=== PATIENT | male | born 1960 | race Caucasian/White ===

== ENCOUNTER 2018-07-22 11:51 | Inpatient (IN) | payer MEDICARE ==
[2018-07-22 12:17] VITALS: BP 158/93
[2018-07-22] MEDS ORDERED: Potassium Chloride 20 mEq ER Tab PO ONE (12:27)
[2018-07-22] MEDS ORDERED: Magnesium Hydroxide (MOM) 30 mL UDC PO PRN (12:43)
[2018-07-22] MEDS ORDERED: Maalox 30 mL Cup PO PRN (12:43)
--- NOTE | 2018-07-22 15:55 | History & Physical ---
ADMIT DATE: INTERNAL MEDICINE CONSULT REASON FOR CONSULT: Medical management. HISTORY OF PRESENT ILLNESS: This is a 58-year-old gentleman with no known medical history per review of chart, who was admitted earlier today for psych decompensation. The patient apparently was acting agitated and was apparently admitted to [facility] in [place] and now has been transferred for further psych management. Currently, the patient is asleep and is not answering any questions, but per nursing staff, there is no medical history and there are no home meds. PAST MEDICAL HISTORY: As noted above. PAST SURGICAL HISTORY: None reported. FAMILY HISTORY: Noncontributory to this admission. SOCIAL HISTORY: Unknown. ALLERGIES: NKDA. OUTPATIENT MEDICATIONS: None. REVIEW OF SYSTEMS: Unable to be done given the patient's condition. PHYSICAL EXAMINATION: VITAL SIGNS: BP 158/93. Pulse and temperature are not available. GENERAL: He appears to be well nourished, well developed, not in acute distress, currently asleep. CARDIAC: Regular rate and rhythm without any murmurs. LUNGS: Clear to auscultation bilaterally. ABDOMEN: Soft, supple, nontender, nondistended, normoactive bowel sounds. LOWER EXTREMITIES: No edema. LABORATORY DATA: There are no labs currently available. ASSESSMENT: 1. Acute psych decompensation. 2. Unknown psych disorder. 3. Possible hypertension per vital signs. PLAN: The patient has been admitted to [facility] for further management and care. I will place the patient on p.r.n. clonidine and we will monitor his BP. Basic labs will be ordered in the next day or so to further assess for any other medical issues. [facility]# [id number]
--- NOTE | 2018-07-23 09:30 | Internal Medicine Prog Note ---
Internal Medicine Subjective - Subjective Service Date: 07/23/18 (NO EVENTS) Patient seen and examined:: without staff Patient is:: asleep Per staff patient has:: no adverse event Internal Medicine Objective - Physical Exam Vitals and I&O: Vital Signs Temp 0 F 07/22/18 20:06 Pulse 93 07/22/18 20:00 Resp 20 07/22/18 20:00 BP 159/95 07/22/18 20:00 Pulse Ox 97 07/22/18 20:00 Intake & Output 07/22/18 07/23/18 07/23/18 18:59 06:59 18:59 Intake Total 240 Balance 240 Weight (lbs) 68.039 kg Intake: Oral 240 Other: # Voids 2 1 # Bowel Movements 0 0 Weight Source Bedscale Active Medications: Current Medications Acetaminophen (Tylenol) 650 mg PO Q4H PRN PRN Reason: Mild Pain/Headache/T above 101 Stop: 09/20/18 12:42 Last Admin: 07/23/18 08:52 Dose: 650 mg Al Hydrox/Mg Hydrox/Simethicone (Maalox) 30 ml PO Q6H PRN PRN Reason: Dyspepsia Stop: 09/20/18 12:42 Lorazepam (Ativan) 0.5 mg PO Q4HR PRN; Protocol PRN Reason: Agitation Stop: 09/20/18 15:29 Last Admin: 07/22/18 18:16 Dose: 0.5 mg Magnesium Hydroxide (Milk Of Magnesia) 30 ml PO HS PRN PRN Reason: Constipation Stop: 09/20/18 12:42 General: NAD HEENT: NC/AT Neck: Supple, No JVD Lungs: CTAB Cardiovascular: RRR, Normal S1, Normal S2, without murmur Abdomen: soft, positive bowel sound Extremities: clear Neurological: no change Internal Medicine Assmt/Plan - Assessment Assessment: ACUTE PSYCH DECOMPENSATION NON-SPECIFIC PSYCH D/O HTN? - Plan Plan: CONT WITH CURRENT PSYCH SUPPORTIVE CARE AND MGT CLONIDINE PRN AWAITING LABS
[2018-07-23] MEDS ORDERED: Haloperidol Lactate 5 mg/mL 1mL Vial IM ONE (14:17)
--- NOTE | 2018-07-24 00:47 | Psychiatric Evaluation ---
DATE OF SERVICE: 07/23/2018 JUSTIFICATION FOR HOSPITALIZATION: 5150 hold. The patient wanted to hurt other people, wanted to hurt himself, wanted the police to shoot him. HISTORY OF PRESENT ILLNESS: A 58-year-old male with history of schizophrenia. Hospitalizations in the past. Apparently, was using methamphetamines, heroin, smoking these substances, became more aggressive, agitated, angry brought in on a hold. The patient attests to anger, depression and restless, was really combative on the unit, needed emergency Haldol, order for psychotic agitation, was yelling at staff, yelling profanities, cursing at his mom over the phone, sexually inappropriate towards social insurance analyst. The patient notes he has been sleeping lately, poor appetite, likely secondary to meth use. PAST PSYCHIATRIC HISTORY: Admissions in the past alludes to schizophrenia. FAMILY HISTORY: Noncontributory. SOCIAL HISTORY: Living in [place], homeless, sometimes lives with mom, not working, gets SSDI. History of meth, heroin. MEDICAL HISTORY: Noted. MEDICATIONS: Noted. Notes he usually takes Zyprexa. MENTAL STATUS EXAMINATION: Stated age. Fair eye contact. Speech very quiet, difficult to hear him at times. Mood "angry." Affect withdrawn. Thought processes were tangential. The patient is here because of SI, no HI, but he has been aggressive, concerns for underlying psychosis. The patient guarded. Poor insight, poor judgment and poor impulse control. PROVISIONAL DIAGNOSES: Schizophrenia; mood, unspecified; opiate use disorder, unspecified; meth use disorder, unspecified. MEDICAL: Please see full H and P. ESTIMATED LENGTH OF STAY: 7-10 days. ASSESSMENT: The patient requiring hospitalization, aggressive, agitated, posturing, also suicidal. PLAN: Restart Zyprexa. TREATMENT PLAN: Includes group as well as milieu therapy. CONDITIONS FOR DISCHARGE: Improved mood, improved affect, cessation of any SI. [facility]# [id number]
--- NOTE | 2018-07-24 12:12 | Internal Medicine Prog Note ---
Internal Medicine Subjective - Subjective Service Date: 07/24/18 (no events) Patient is:: awake Per staff patient has:: no adverse event Internal Medicine Objective - Physical Exam Vitals and I&O: Vital Signs Temp 97.8 F 07/23/18 20:00 Pulse 84 07/23/18 20:00 Resp 19 07/24/18 07:25 BP 146/74 07/23/18 20:00 Pulse Ox 97 07/23/18 20:00 Intake & Output 07/23/18 07/24/18 07/24/18 18:59 06:59 18:59 Intake Total 120 Balance 120 Intake: Oral 120 Other: # Voids 3 Active Medications: Current Medications Acetaminophen (Tylenol) 650 mg PO Q4H PRN PRN Reason: Mild Pain/Headache/T above 101 Stop: 09/20/18 12:42 Last Admin: 07/23/18 08:52 Dose: 650 mg Al Hydrox/Mg Hydrox/Simethicone (Maalox) 30 ml PO Q6H PRN PRN Reason: Dyspepsia Stop: 09/20/18 12:42 Lorazepam (Ativan) 0.5 mg PO Q4HR PRN; Protocol PRN Reason: Agitation Stop: 09/20/18 15:29 Last Admin: 07/22/18 18:16 Dose: 0.5 mg Magnesium Hydroxide (Milk Of Magnesia) 30 ml PO HS PRN PRN Reason: Constipation Stop: 09/20/18 12:42 Olanzapine (Zyprexa) 10 mg PO HS MISBAH; Protocol Stop: 09/21/18 20:59 Last Admin: 07/23/18 21:30 Dose: Not Given General: NAD HEENT: NC/AT Neck: Supple, No JVD Lungs: CTAB Cardiovascular: RRR, Normal S1, Normal S2, without murmur Abdomen: soft, positive bowel sound Extremities: clear Neurological: no change Internal Medicine Assmt/Plan - Assessment Assessment: ACUTE PSYCH DECOMPENSATION NON-SPECIFIC PSYCH D/O HTN? - Plan Plan: CONT WITH CURRENT PSYCH SUPPORTIVE CARE AND MGT CLONIDINE PRN AWAITING LABS (refusing).
[2018-07-24] MEDS ORDERED: Haloperidol Lactate 5 mg/mL 1mL Vial IM ONE (16:30)
--- NOTE | 2018-07-24 21:21 | Progress Notes ---
DATE: 07/24/2018 SUBJECTIVE: A 58-year-old male, currently in the hospital, history of schizophrenia, meth use disorder, heroin use. The patient chronically is homeless, still acting strange, bizarre, sometimes disheveled, agitated yesterday, highly impulsive, unpredictable, no current plans for self-care, but he is amenable to going to a sober living. He wants to stay off of drugs. Fair sleep, fair appetite, he wants to be back on Zyprexa, some involvement from the mom. Mom is the payee. ASSESSMENT: The patient remains symptomatic, ongoing concerns about safety of self and others, and concerns about his ability to really function at a lower level of care. PLAN: We will continue to monitor, titrate medications, and initiate a 14-day hold. JOB# [id number]
[2018-07-25] MEDS ORDERED: Venlafaxine HCl ER 37.5 mg Tab PO ONE (13:22)
[2018-07-25] MEDS: Venlafaxine HCl ER 37.5 mg Tab PO SCH (17:36)
--- NOTE | 2018-07-25 18:30 | Progress Notes ---
DATE: SUBJECTIVE: The patient seen, chart reviewed, discussed with staff today, 07/25/2018. The patient is still bizarre, disrobing at times, impulsive, unpredictable, concerns mostly for the safety of self and also others. He has been aggressive on the unit. He is very unclear about where he is going to go. He states he wants to be homeless, but then states that he would consider rehab facility. The patient with a long history of mental illness, drug use, meth use, fair sleep, poor appetite, currently on Zyprexa. ASSESSMENT: The patient remains symptomatic, not safe for a lower level of care. PLAN: We will initiate dosing of Effexor. Continue the 14-day hold. JOB# [id number]
--- NOTE | 2018-07-25 23:58 | Internal Medicine Prog Note ---
Internal Medicine Subjective - Subjective Service Date: 07/25/18 (no events) Patient is:: awake Per staff patient has:: no adverse event Internal Medicine Objective - Physical Exam Vitals and I&O: Vital Signs Temp 97.5 F 07/25/18 14:50 Pulse 97 07/25/18 14:50 Resp 19 07/25/18 20:00 BP 132/77 07/25/18 14:50 Pulse Ox 97 07/25/18 14:50 Intake & Output 07/25/18 07/25/18 07/26/18 06:59 18:59 06:59 Intake Total 240 1200 Balance 240 1200 Intake: Oral 240 1200 Other: # Voids 2 4 # Bowel Movements 0 1 Active Medications: Current Medications Acetaminophen (Tylenol) 650 mg PO Q4H PRN PRN Reason: Mild Pain/Headache/T above 101 Stop: 09/20/18 12:42 Last Admin: 07/25/18 22:41 Dose: 650 mg Al Hydrox/Mg Hydrox/Simethicone (Maalox) 30 ml PO Q6H PRN PRN Reason: Dyspepsia Stop: 09/20/18 12:42 Lorazepam (Ativan) 0.5 mg PO Q4HR PRN; Protocol PRN Reason: Agitation Stop: 09/20/18 15:29 Last Admin: 07/25/18 20:55 Dose: 0.5 mg Magnesium Hydroxide (Milk Of Magnesia) 30 ml PO HS PRN PRN Reason: Constipation Stop: 09/20/18 12:42 Olanzapine (Zyprexa) 10 mg PO HS MISBAH; Protocol Stop: 09/21/18 20:59 Last Admin: 07/25/18 20:54 Dose: 10 mg Venlafaxine HCl (Effexor Xr) 37.5 mg PO BID MISBAH; Protocol Stop: 09/23/18 16:59 General: NAD HEENT: NC/AT Neck: Supple, No JVD Lungs: CTAB Cardiovascular: RRR, Normal S1, Normal S2, without murmur Abdomen: soft, positive bowel sound Extremities: clear Neurological: no change Internal Medicine Assmt/Plan - Assessment Assessment: ACUTE PSYCH DECOMPENSATION NON-SPECIFIC PSYCH D/O HTN? - Plan Plan: CONT WITH CURRENT PSYCH SUPPORTIVE CARE AND MGT CLONIDINE PRN AWAITING LABS (refusing).
[2018-07-26] MEDS: Venlafaxine HCl ER 37.5 mg Tab PO SCH ×2 (10:00→18:00)
--- NOTE | 2018-07-26 19:13 | Progress Notes ---
DATE: 07/26/2018 SUBJECTIVE: The patient seen, chart reviewed, discussed with staff today, 07/26/2018. The patient remains unruly, easily agitated, irritable, ongoing psychotic symptoms, seems to be mumbling to self, talking to self, poorly oriented. Mom called the office yesterday and wanted me to call her back, but the patient is not giving me verbal consent to speak with her and she is not the conservator, although apparently she introduces herself as a conservator to my office staff. Preoccupied, needing frequent redirection, unruly at times, outbursts. PLAN: We will continue to monitor, concerns for the safety mostly of others. The patient has required emergency order of medications while in the hospital. JOB# [id number]
[2018-07-27] MEDS: Venlafaxine HCl ER 37.5 mg Tab PO SCH ×2 (08:57→17:21)
--- NOTE | 2018-07-27 11:42 | Progress Notes ---
DATE: 07/27/2018 SUBJECTIVE: The patient remains highly impulsive, unpredictable, still unruly at times, mumbling to self, psychotic appearing, seems to be tolerant of medications thus far. No medication side effects noted. No Parkinsonism for example tremors. The patient is currently taking Zyprexa 10 mg. We will continue to monitor. We will be increasing his dosing to target ongoing agitation and underlying psychosis. [facility]# [id number]
[2018-07-27 17:49] LABS: % BASOPHILS 0.6 % (0.0-2.0); % EOSINOPHILS 3.9 % (0.0-5.0); % LYMPHOCYTES 43.7 % (20.0-50.0); % MONOCYTES 6.9 % (2.0-10.0); % NEUTROPHILS 44.9 % (40.0-80.0); EOSINOPHILE ABSOLUTE 0.3 Th/cmm (0.1-0.4); HEMOGLOBIN 13.2 gm/dL (12-16); LYMPHOCYTE ABSOLUTE 2.9 Th/cmm (1.5-3.0); MEAN CELL VOLUME 90.1 fl (80-99); MEAN CORPUSCULAR HEMOGLOBIN 29.8 pg (26.0-30.0); MONOCYTE ABSOLUTE 0.5 Th/cmm (0.3-1.0); NEUTROPHILE ABSOLUTE 2.9 Th/cmm (1.8-8.0); PLATELET COUNT 220 Th/cmm (150-400); RED BLOOD COUNT 4.44 Mil/cmm (4.30-5.70); RED CELL DISTRIBUTION WIDTH 13.1 % (11.5-20.0); WHITE BLOOD COUNT 6.6 Th/cmm (4.8-10.8)
[2018-07-27 18:07] LABS: ALB/GLOB RATIO 1.5 (1.0-1.8); ALBUMIN 3.9 gm/dL (4.2-5.5); ALKALINE PHOSPHATASE 89 U/L (34-104); ANION GAP 13.7 (7.0-16.0); BILIRUBIN,TOTAL 0.3 mg/dL (0.3-1.0); BUN - UREA NITROGEN 19 mg/dL (7-25); CALCIUM SERUM 9.6 mg/dL (8.6-10.3); CARBON DIOXIDE 26.3 mEq/L (21.0-31.0); CHLORIDE 103 mEq/L (98-107); CREATININE - SERUM 0.9 mg/dL (0.7-1.3); GFR AFRICAN-AMERICAN > 60.0 ml/min (>90); GFR NON AFRICAN-AMERICAN > 60.0 ml/min; GLUCOSE 162 mg/dL (70-105); SGOT 20 U/L (13-39); SGPT/ALT 15 U/L (7-52); SODIUM SERUM 139 mEq/L (136-145); TOTAL PROTEIN,SERUM 6.5 gm/dL (6.0-8.3)
[2018-07-27 19:39] LABS: URINE SOURCE CLEAN C
[2018-07-27 19:50] LABS: URINE BILIRUBIN NEGATIVE (NEGATIVE); URINE BLOOD TRACE (NEGATIVE); URINE GLUCOSE (UA) NEGATIVE (NEGATIVE); URINE KETONE NEGATIVE (NEGATIVE); URINE LEUKOCYTE ESTERASE NEGATIVE (NEGATIVE); URINE MICROSCOPIC INDICATED? YES; URINE NITRATE NEGATIVE (NEGATIVE); URINE PH 5.5 (4.6 - 8.0); URINE PROTEIN NEGATIVE (NEGATIVE); URINE UROBILINOGEN 0.2 E.U./dL (0.2 - 1.0)
[2018-07-27 19:51] LABS: URINE CLARITY CLEAR (CLEAR); URINE COLOR YELLOW
[2018-07-27 20:02] LABS: URINE BACTERIA NONE SEEN /hpf (NONE SEEN); URINE EPITHELIAL CELLS NONE SEEN /lpf (FEW); URINE WBC 0-2 /hpf (0-5)
--- NOTE | 2018-07-27 22:21 | Internal Medicine Prog Note ---
Internal Medicine Subjective - Subjective Service Date: 07/27/18 (no distress) Patient is:: awake Per staff patient has:: no adverse event Internal Medicine Objective - Results Result Diagrams: 07/27/18 17:40 07/27/18 17:40 Recent Labs: Laboratory Last Values WBC 6.6 Th/cmm (4.8-10.8) 07/27/18 17:40 RBC 4.44 Mil/cmm (4.30-5.70) 07/27/18 17:40 Hgb 13.2 gm/dL (12-16) 07/27/18 17:40 Hct 40.0 % (41.0-60) L 07/27/18 17:40 MCV 90.1 fl (80-99) 07/27/18 17:40 MCH 29.8 pg (26.0-30.0) 07/27/18 17:40 MCHC Differential 33.0 pg (28.0-36.0) 07/27/18 17:40 RDW 13.1 % (11.5-20.0) 07/27/18 17:40 Plt Count 220 Th/cmm (150-400) 07/27/18 17:40 MPV 7.9 fl 07/27/18 17:40 Neutrophils % 44.9 % (40.0-80.0) 07/27/18 17:40 Lymphocytes % 43.7 % (20.0-50.0) 07/27/18 17:40 Monocytes % 6.9 % (2.0-10.0) 07/27/18 17:40 Eosinophils % 3.9 % (0.0-5.0) 07/27/18 17:40 Basophils % 0.6 % (0.0-2.0) 07/27/18 17:40 Sodium 139 mEq/L (136-145) 07/27/18 17:40 Potassium 4.0 mEq/L (3.5-5.1) 07/27/18 17:40 Chloride 103 mEq/L (98-107) 07/27/18 17:40 Carbon Dioxide 26.3 mEq/L (21.0-31.0) 07/27/18 17:40 Anion Gap 13.7 (7.0-16.0) 07/27/18 17:40 BUN 19 mg/dL (7-25) 07/27/18 17:40 Creatinine 0.9 mg/dL (0.7-1.3) 07/27/18 17:40 Est GFR ( Amer) > 60.0 ml/min (>90) 07/27/18 17:40 Est GFR (Non-Af Amer) > 60.0 ml/min 07/27/18 17:40 BUN/Creatinine Ratio 21.1 07/27/18 17:40 Glucose 162 mg/dL (70-105) H 07/27/18 17:40 Calcium 9.6 mg/dL (8.6-10.3) 07/27/18 17:40 Total Bilirubin 0.3 mg/dL (0.3-1.0) 07/27/18 17:40 AST 20 U/L (13-39) 07/27/18 17:40 ALT 15 U/L (7-52) 07/27/18 17:40 Alkaline Phosphatase 89 U/L (34-104) 07/27/18 17:40 Total Protein 6.5 gm/dL (6.0-8.3) 07/27/18 17:40 Albumin 3.9 gm/dL (4.2-5.5) L 07/27/18 17:40 Globulin 2.6 gm/dL 07/27/18 17:40 Albumin/Globulin Ratio 1.5 (1.0-1.8) 07/27/18 17:40 TSH 1.09 uIU/ml (0.34-5.60) 07/27/18 17:40 Urine Source CLEAN C 07/27/18 19:15 Urine Color YELLOW 07/27/18 19:15 Urine Clarity CLEAR (CLEAR) 07/27/18 19:15 Urine pH 5.5 (4.6 - 8.0) 07/27/18 19:15 Ur Specific [place] 1.025 (1.005-1.030) 07/27/18 19:15 Urine Protein NEGATIVE mg/dL (NEGATIVE) 07/27/18 19:15 Urine Glucose (UA) NEGATIVE mg/dL (NEGATIVE) 07/27/18 19:15 Urine Ketones NEGATIVE mg/dL (NEGATIVE) 07/27/18 19:15 Urine Blood TRACE (NEGATIVE) 07/27/18 19:15 Urine Nitrate NEGATIVE (NEGATIVE) 07/27/18 19:15 Urine Bilirubin NEGATIVE (NEGATIVE) 07/27/18 19:15 Urine Urobilinogen 0.2 E.U./dL (0.2 - 1.0) 07/27/18 19:15 Ur Leukocyte Esterase NEGATIVE (NEGATIVE) 07/27/18 19:15 Urine RBC 2-5 /hpf (0-5) H 07/27/18 19:15 Urine WBC 0-2 /hpf (0-5) 07/27/18 19:15 Ur Epithelial Cells NONE SEEN /lpf (FEW) 07/27/18 19:15 Urine Bacteria NONE SEEN /hpf (NONE SEEN) 07/27/18 19:15 - Physical Exam Vitals and I&O: Vital Signs Temp 98.0 F 07/27/18 20:00 Pulse 83 07/27/18 20:00 Resp 20 07/27/18 20:00 BP 138/92 07/27/18 20:00 Pulse Ox 100 07/27/18 20:00 Intake & Output 07/27/18 07/27/18 07/28/18 06:59 18:59 06:59 Intake Total 120 1400 240 Balance 120 1400 240 Intake: Oral 120 1400 240 Other: # Voids 3 4 2 # Bowel Movements 1 0 Active Medications: Current Medications Acetaminophen (Tylenol) 650 mg PO Q4H PRN PRN Reason: Mild Pain/Headache/T above 101 Stop: 09/20/18 12:42 Last Admin: 07/27/18 17:22 Dose: 650 mg Al Hydrox/Mg Hydrox/Simethicone (Maalox) 30 ml PO Q6H PRN PRN Reason: Dyspepsia Stop: 09/20/18 12:42 Lorazepam (Ativan) 0.5 mg PO Q4HR PRN; Protocol PRN Reason: Agitation Stop: 09/20/18 15:29 Last Admin: 07/27/18 17:21 Dose: 0.5 mg Magnesium Hydroxide (Milk Of Magnesia) 30 ml PO HS PRN PRN Reason: Constipation Stop: 09/20/18 12:42 Olanzapine (Zyprexa) 15 mg PO HS MISBAH; Protocol Stop: 09/25/18 20:59 Last Admin: 07/27/18 20:21 Dose: 15 mg Venlafaxine HCl (Effexor Xr) 37.5 mg PO BID MISBAH; Protocol Stop: 09/23/18 16:59 Last Admin: 07/27/18 17:21 Dose: 37.5 mg General: NAD HEENT: NC/AT Neck: Supple, No JVD Lungs: CTAB Cardiovascular: RRR, Normal S1, Normal S2, without murmur Abdomen: soft, positive bowel sound Extremities: clear Neurological: no change Internal Medicine Assmt/Plan - Assessment Assessment: ACUTE PSYCH DECOMPENSATION NON-SPECIFIC PSYCH D/O HTN-monitor. Clonidine prn. - Plan Plan: CONT WITH CURRENT PSYCH SUPPORTIVE CARE AND MGT CLONIDINE PRN
[2018-07-28 05:04] LABS: CHOLESTEROL 125 mg/dL (<200); HDL -HIGH DENSITY LIPOPROTEIN 51 mg/dL (23-92); TRIGLYCERIDES 100 mg/dL (<150)
[2018-07-28] MEDS: Venlafaxine HCl ER 37.5 mg Tab PO SCH ×2 (08:58→16:17)
--- NOTE | 2018-07-28 09:09 | Internal Medicine Prog Note ---
Internal Medicine Subjective - Subjective Service Date: 07/28/18 (no mjor changes noted) Patient seen and examined:: without staff Patient is:: awake Per staff patient has:: no adverse event Internal Medicine Objective - Results Result Diagrams: 07/27/18 17:40 07/27/18 17:40 Recent Labs: Laboratory Last Values WBC 6.6 Th/cmm (4.8-10.8) 07/27/18 17:40 RBC 4.44 Mil/cmm (4.30-5.70) 07/27/18 17:40 Hgb 13.2 gm/dL (12-16) 07/27/18 17:40 Hct 40.0 % (41.0-60) L 07/27/18 17:40 MCV 90.1 fl (80-99) 07/27/18 17:40 MCH 29.8 pg (26.0-30.0) 07/27/18 17:40 MCHC Differential 33.0 pg (28.0-36.0) 07/27/18 17:40 RDW 13.1 % (11.5-20.0) 07/27/18 17:40 Plt Count 220 Th/cmm (150-400) 07/27/18 17:40 MPV 7.9 fl 07/27/18 17:40 Neutrophils % 44.9 % (40.0-80.0) 07/27/18 17:40 Lymphocytes % 43.7 % (20.0-50.0) 07/27/18 17:40 Monocytes % 6.9 % (2.0-10.0) 07/27/18 17:40 Eosinophils % 3.9 % (0.0-5.0) 07/27/18 17:40 Basophils % 0.6 % (0.0-2.0) 07/27/18 17:40 Sodium 139 mEq/L (136-145) 07/27/18 17:40 Potassium 4.0 mEq/L (3.5-5.1) 07/27/18 17:40 Chloride 103 mEq/L (98-107) 07/27/18 17:40 Carbon Dioxide 26.3 mEq/L (21.0-31.0) 07/27/18 17:40 Anion Gap 13.7 (7.0-16.0) 07/27/18 17:40 BUN 19 mg/dL (7-25) 07/27/18 17:40 Creatinine 0.9 mg/dL (0.7-1.3) 07/27/18 17:40 Est GFR ( Amer) > 60.0 ml/min (>90) 07/27/18 17:40 Est GFR (Non-Af Amer) > 60.0 ml/min 07/27/18 17:40 BUN/Creatinine Ratio 21.1 07/27/18 17:40 Glucose 162 mg/dL (70-105) H 07/27/18 17:40 Calcium 9.6 mg/dL (8.6-10.3) 07/27/18 17:40 Total Bilirubin 0.3 mg/dL (0.3-1.0) 07/27/18 17:40 AST 20 U/L (13-39) 07/27/18 17:40 ALT 15 U/L (7-52) 07/27/18 17:40 Alkaline Phosphatase 89 U/L (34-104) 07/27/18 17:40 Total Protein 6.5 gm/dL (6.0-8.3) 07/27/18 17:40 Albumin 3.9 gm/dL (4.2-5.5) L 07/27/18 17:40 Globulin 2.6 gm/dL 07/27/18 17:40 Albumin/Globulin Ratio 1.5 (1.0-1.8) 07/27/18 17:40 Triglycerides 100 mg/dL (<150) 07/27/18 17:40 Cholesterol 125 mg/dL (<200) 07/27/18 17:40 LDL Cholesterol Direct 61 mg/dL (75-193) L 07/27/18 17:40 HDL Cholesterol 51 mg/dL (23-92) 07/27/18 17:40 TSH 1.09 uIU/ml (0.34-5.60) 07/27/18 17:40 Urine Source CLEAN C 07/27/18 19:15 Urine Color YELLOW 07/27/18 19:15 Urine Clarity CLEAR (CLEAR) 07/27/18 19:15 Urine pH 5.5 (4.6 - 8.0) 07/27/18 19:15 Ur Specific [place] 1.025 (1.005-1.030) 07/27/18 19:15 Urine Protein NEGATIVE mg/dL (NEGATIVE) 07/27/18 19:15 Urine Glucose (UA) NEGATIVE mg/dL (NEGATIVE) 07/27/18 19:15 Urine Ketones NEGATIVE mg/dL (NEGATIVE) 07/27/18 19:15 Urine Blood TRACE (NEGATIVE) 07/27/18 19:15 Urine Nitrate NEGATIVE (NEGATIVE) 07/27/18 19:15 Urine Bilirubin NEGATIVE (NEGATIVE) 07/27/18 19:15 Urine Urobilinogen 0.2 E.U./dL (0.2 - 1.0) 07/27/18 19:15 Ur Leukocyte Esterase NEGATIVE (NEGATIVE) 07/27/18 19:15 Urine RBC 2-5 /hpf (0-5) H 07/27/18 19:15 Urine WBC 0-2 /hpf (0-5) 07/27/18 19:15 Ur Epithelial Cells NONE SEEN /lpf (FEW) 07/27/18 19:15 Urine Bacteria NONE SEEN /hpf (NONE SEEN) 07/27/18 19:15 - Physical Exam Vitals and I&O: Vital Signs Temp 98.0 F 07/27/18 20:00 Pulse 83 07/27/18 20:00 Resp 20 07/27/18 20:00 BP 138/92 07/27/18 20:00 Pulse Ox 100 07/27/18 20:00 Intake & Output 07/27/18 07/28/18 07/28/18 18:59 06:59 18:59 Intake Total 1400 360 Balance 1400 360 Intake: Oral 1400 360 Other: # Voids 4 1 # Bowel Movements 1 0 Active Medications: Current Medications Acetaminophen (Tylenol) 650 mg PO Q4H PRN PRN Reason: Mild Pain/Headache/T above 101 Stop: 09/20/18 12:42 Last Admin: 07/28/18 01:23 Dose: 650 mg Al Hydrox/Mg Hydrox/Simethicone (Maalox) 30 ml PO Q6H PRN PRN Reason: Dyspepsia Stop: 09/20/18 12:42 Lorazepam (Ativan) 0.5 mg PO Q4HR PRN; Protocol PRN Reason: Agitation Stop: 09/20/18 15:29 Last Admin: 07/28/18 08:58 Dose: 0.5 mg Magnesium Hydroxide (Milk Of Magnesia) 30 ml PO HS PRN PRN Reason: Constipation Stop: 09/20/18 12:42 Olanzapine (Zyprexa) 15 mg PO HS MISBAH; Protocol Stop: 09/25/18 20:59 Last Admin: 07/27/18 20:21 Dose: 15 mg Venlafaxine HCl (Effexor Xr) 37.5 mg PO BID MISBAH; Protocol Stop: 09/23/18 16:59 Last Admin: 07/28/18 08:58 Dose: 37.5 mg General: NAD HEENT: NC/AT Neck: Supple, No JVD Lungs: CTAB Cardiovascular: RRR, Normal S1, Normal S2, without murmur Abdomen: soft, positive bowel sound Extremities: clear Neurological: no change Internal Medicine Assmt/Plan - Assessment Assessment: ACUTE PSYCH DECOMPENSATION NON-SPECIFIC PSYCH D/O HTN-monitor. Clonidine prn. - Plan Plan: CONT WITH CURRENT PSYCH SUPPORTIVE CARE AND MGT CLONIDINE PRN
--- NOTE | 2018-07-28 23:24 | Progress Notes ---
DATE: 07/28/2018 SUBJECTIVE: The patient irritable, upset, does not want to talk to me today. Noted by staff to be unruly, highly impulsive, unpredictable. Mom is trying to get in touch with me, but the patient did not give me consent to speak with her. Therefore, I will be abiding by the HIPAA rules and I will not be communicating with the patient's mother per the explicit instructions of the patient. Fair sleep, fair appetite, ongoing safety concerns, concerns about most of the safety of others around him, given how aggressive he can be. We will continue to monitor. Continue Effexor, Zyprexa. We are trying to also help the patient with placement. DICTATION ENDS HERE JOB# [id number]
[2018-07-29] MEDS: Venlafaxine HCl ER 37.5 mg Tab PO SCH ×2 (08:32→16:10)
[2018-07-29] MEDS ORDERED: Haloperidol Lactate 5 mg/mL 1mL Vial IM STA (15:37)
--- NOTE | 2018-07-29 23:32 | Progress Notes ---
DATE: 07/29/2018 SUBJECTIVE: The patient combative, exposing himself, cursing, may need emergency medications, escalating, pacing back and forth, flailing his arms in the air, and responding heavily to internal stimuli, still acute. ASSESSMENT: The patient remains symptomatic, ongoing concerns about ongoing behavioral disturbances. Concerns for mostly the safety of others. Also, about his ability to really reason and function at a lower level of care. PLAN: I will be increasing his dosing of Zyprexa today. [facility]# [id number]
--- NOTE | 2018-07-30 08:53 | Internal Medicine Prog Note ---
Internal Medicine Subjective - Subjective Service Date: 07/30/18 (NO EVENTS.) Patient is:: awake Per staff patient has:: no adverse event Internal Medicine Objective - Results Result Diagrams: 07/27/18 17:40 07/27/18 17:40 Recent Labs: Laboratory Last Values WBC 6.6 Th/cmm (4.8-10.8) 07/27/18 17:40 RBC 4.44 Mil/cmm (4.30-5.70) 07/27/18 17:40 Hgb 13.2 gm/dL (12-16) 07/27/18 17:40 Hct 40.0 % (41.0-60) L 07/27/18 17:40 MCV 90.1 fl (80-99) 07/27/18 17:40 MCH 29.8 pg (26.0-30.0) 07/27/18 17:40 MCHC Differential 33.0 pg (28.0-36.0) 07/27/18 17:40 RDW 13.1 % (11.5-20.0) 07/27/18 17:40 Plt Count 220 Th/cmm (150-400) 07/27/18 17:40 MPV 7.9 fl 07/27/18 17:40 Neutrophils % 44.9 % (40.0-80.0) 07/27/18 17:40 Lymphocytes % 43.7 % (20.0-50.0) 07/27/18 17:40 Monocytes % 6.9 % (2.0-10.0) 07/27/18 17:40 Eosinophils % 3.9 % (0.0-5.0) 07/27/18 17:40 Basophils % 0.6 % (0.0-2.0) 07/27/18 17:40 Sodium 139 mEq/L (136-145) 07/27/18 17:40 Potassium 4.0 mEq/L (3.5-5.1) 07/27/18 17:40 Chloride 103 mEq/L (98-107) 07/27/18 17:40 Carbon Dioxide 26.3 mEq/L (21.0-31.0) 07/27/18 17:40 Anion Gap 13.7 (7.0-16.0) 07/27/18 17:40 BUN 19 mg/dL (7-25) 07/27/18 17:40 Creatinine 0.9 mg/dL (0.7-1.3) 07/27/18 17:40 Est GFR ( Amer) > 60.0 ml/min (>90) 07/27/18 17:40 Est GFR (Non-Af Amer) > 60.0 ml/min 07/27/18 17:40 BUN/Creatinine Ratio 21.1 07/27/18 17:40 Glucose 162 mg/dL (70-105) H 07/27/18 17:40 Calcium 9.6 mg/dL (8.6-10.3) 07/27/18 17:40 Total Bilirubin 0.3 mg/dL (0.3-1.0) 07/27/18 17:40 AST 20 U/L (13-39) 07/27/18 17:40 ALT 15 U/L (7-52) 07/27/18 17:40 Alkaline Phosphatase 89 U/L (34-104) 07/27/18 17:40 Total Protein 6.5 gm/dL (6.0-8.3) 07/27/18 17:40 Albumin 3.9 gm/dL (4.2-5.5) L 07/27/18 17:40 Globulin 2.6 gm/dL 07/27/18 17:40 Albumin/Globulin Ratio 1.5 (1.0-1.8) 07/27/18 17:40 Triglycerides 100 mg/dL (<150) 07/27/18 17:40 Cholesterol 125 mg/dL (<200) 07/27/18 17:40 LDL Cholesterol Direct 61 mg/dL (75-193) L 07/27/18 17:40 HDL Cholesterol 51 mg/dL (23-92) 07/27/18 17:40 TSH 1.09 uIU/ml (0.34-5.60) 07/27/18 17:40 Urine Source CLEAN C 07/27/18 19:15 Urine Color YELLOW 07/27/18 19:15 Urine Clarity CLEAR (CLEAR) 07/27/18 19:15 Urine pH 5.5 (4.6 - 8.0) 07/27/18 19:15 Ur Specific [place] 1.025 (1.005-1.030) 07/27/18 19:15 Urine Protein NEGATIVE mg/dL (NEGATIVE) 07/27/18 19:15 Urine Glucose (UA) NEGATIVE mg/dL (NEGATIVE) 07/27/18 19:15 Urine Ketones NEGATIVE mg/dL (NEGATIVE) 07/27/18 19:15 Urine Blood TRACE (NEGATIVE) 07/27/18 19:15 Urine Nitrate NEGATIVE (NEGATIVE) 07/27/18 19:15 Urine Bilirubin NEGATIVE (NEGATIVE) 07/27/18 19:15 Urine Urobilinogen 0.2 E.U./dL (0.2 - 1.0) 07/27/18 19:15 Ur Leukocyte Esterase NEGATIVE (NEGATIVE) 07/27/18 19:15 Urine RBC 2-5 /hpf (0-5) H 07/27/18 19:15 Urine WBC 0-2 /hpf (0-5) 07/27/18 19:15 Ur Epithelial Cells NONE SEEN /lpf (FEW) 07/27/18 19:15 Urine Bacteria NONE SEEN /hpf (NONE SEEN) 07/27/18 19:15 - Physical Exam Vitals and I&O: Vital Signs Temp 98.0 F 07/30/18 06:06 Pulse 82 07/30/18 06:06 Resp 19 07/30/18 06:06 BP 156/92 07/30/18 06:06 Pulse Ox 99 07/30/18 06:06 Intake & Output 07/29/18 07/30/18 07/30/18 18:59 06:59 18:59 Intake Total 420 Balance 420 Intake: Oral 420 Other: # Voids 2 # Bowel Movements 0 Active Medications: Current Medications Acetaminophen (Tylenol) 650 mg PO Q4H PRN PRN Reason: Mild Pain/Headache/T above 101 Stop: 09/20/18 12:42 Last Admin: 07/29/18 14:14 Dose: 650 mg Al Hydrox/Mg Hydrox/Simethicone (Maalox) 30 ml PO Q6H PRN PRN Reason: Dyspepsia Stop: 09/20/18 12:42 Lorazepam (Ativan) 0.5 mg PO Q4HR PRN; Protocol PRN Reason: Agitation Stop: 09/20/18 15:29 Last Admin: 07/30/18 03:44 Dose: 0.5 mg Magnesium Hydroxide (Milk Of Magnesia) 30 ml PO HS PRN PRN Reason: Constipation Stop: 09/20/18 12:42 Olanzapine (Zyprexa) 10 mg PO DAILY [facility]; Protocol Stop: 09/28/18 08:59 Olanzapine (Zyprexa) 15 mg PO HS [facility]; Protocol Stop: 09/25/18 20:59 Venlafaxine HCl (Effexor Xr) 37.5 mg PO BID [facility]; Protocol Stop: 09/23/18 16:59 Last Admin: 07/29/18 16:10 Dose: 37.5 mg General: NAD HEENT: NC/AT Neck: Supple, No JVD Lungs: CTAB Cardiovascular: RRR, Normal S1, Normal S2, without murmur Abdomen: soft, positive bowel sound Extremities: clear Neurological: no change Internal Medicine Assmt/Plan - Assessment Assessment: ACUTE PSYCH DECOMPENSATION NON-SPECIFIC PSYCH D/O HTN-monitor. Start amlodipine 5mg qday, cont with Clonidine prn. - Plan Plan: CONT WITH CURRENT PSYCH SUPPORTIVE CARE AND MGT CLONIDINE PRN Nutritional Asmnt/Malnutr-PDOC - Dietary Evaluation Malnutrition Findings (Please click <Entered> for more info): Nutritional Asmnt/Malnutrition Start: 07/29/18 18: 18 Text: Status: Active Freq: Protocol: Document 07/29/18 18:18 [email or web address] (Rec: 07/29/18 18:50 [email or web address]) Nutritional Asmnt/Malnutrition Patient General Information Nutritional Screening Low Risk Diagnosis acute psych decompensation Pertinent Medical Hx/Surgical Hx no known medical hx noted per MD H&P. Subjective Information Pt is 58 yr old male with no known medical hx admitted for pscyh decompensation. Pt on regular diet, PO intakes 100% x last 6 recorded meals. Current Diet Order/ Nutrition Support Regular Diet Pertinent Medications milk of magnesia, maalox Pertinent Labs Glucose 162 noted/no hx DM; will monitor. Nutritional Hx/Data Height 1.73 m Height (Calculated Centimeters) 172.7 Current Weight (lbs) 68.039 kg Weight (Calculated Kilograms) 68.0 Weight (Calculated Grams) 49912.9 [place] Body Weight 70 kg Body Mass Index (BMI) 22.8 Weight Status Approriate GI Symptoms GI Symptoms None Last BM 615 Difficult in: None Food Allergies No Skin Integrity/Comment: intact- no pressure injury/non -healing wounds noted. Current %PO Good (75-100%) Estimated Nutritional Goals BEE in Kcals: Using Current wt Calories/Kcals/Kg 25-30 Kcals Calculated 0209-9274 Protein: Using Current wt Protein g/k.8-1 Protein Calculated 54-68 Fluid: ml 6257-7568 Nutritional Problem 1. Problem Problem No nutrition diagnosis at this time. Intervention/Recommendation Comments Continue Regular Diet Rx- adequate to meet estimated nutritional needs. Expected Outcomes/Goals Expected Outcomes/Goals Maintain PO intakes 90-100% of all meals. Electronically Signed By: Annalisa Galaviz, MPH, RDN Clinical Dietitian 07/29/18 7:10 PM
[2018-07-30] MEDS: Venlafaxine HCl ER 37.5 mg Tab PO SCH ×2 (09:42→17:44)
[2018-07-31] MEDS: Venlafaxine HCl ER 37.5 mg Tab PO SCH ×2 (08:37→17:00)
--- NOTE | 2018-07-31 10:31 | Progress Notes ---
DATE: 07/30/2018 SUBJECTIVE: The patient continues to deny any access to contact the patient's mom, due to ____; therefore I am not able to contact her. I asked him continuously and he continually says that "I do not have permission to call her." The patient is still rambling, aggressive at times, still noted to be nonsensical, argumentative, easily agitated, ongoing concerns about his ability to really function at a lower level of care. I also asked the patient on Saturday, whether I can call his doctor, ____, and he also said no. The patient is talking to self, nonsensical. PLAN: We will continue to monitor ongoing concerns about his ability to really stay safe, functional lower level of care, at times requiring a lot of interventions, staff intervention. We will continue to monitor, titrate and adjust medications. I will be increasing his dosing of Zyprexa in the morning. [facility]# [id number]
--- NOTE | 2018-07-31 12:31 | Internal Medicine Prog Note ---
Internal Medicine Subjective - Subjective Service Date: 07/31/18 (NO ACUTE EVENTS) Patient is:: awake Per staff patient has:: no adverse event Internal Medicine Objective - Results Result Diagrams: 07/27/18 17:40 07/27/18 17:40 Recent Labs: Laboratory Last Values WBC 6.6 Th/cmm (4.8-10.8) 07/27/18 17:40 RBC 4.44 Mil/cmm (4.30-5.70) 07/27/18 17:40 Hgb 13.2 gm/dL (12-16) 07/27/18 17:40 Hct 40.0 % (41.0-60) L 07/27/18 17:40 MCV 90.1 fl (80-99) 07/27/18 17:40 MCH 29.8 pg (26.0-30.0) 07/27/18 17:40 MCHC Differential 33.0 pg (28.0-36.0) 07/27/18 17:40 RDW 13.1 % (11.5-20.0) 07/27/18 17:40 Plt Count 220 Th/cmm (150-400) 07/27/18 17:40 MPV 7.9 fl 07/27/18 17:40 Neutrophils % 44.9 % (40.0-80.0) 07/27/18 17:40 Lymphocytes % 43.7 % (20.0-50.0) 07/27/18 17:40 Monocytes % 6.9 % (2.0-10.0) 07/27/18 17:40 Eosinophils % 3.9 % (0.0-5.0) 07/27/18 17:40 Basophils % 0.6 % (0.0-2.0) 07/27/18 17:40 Sodium 139 mEq/L (136-145) 07/27/18 17:40 Potassium 4.0 mEq/L (3.5-5.1) 07/27/18 17:40 Chloride 103 mEq/L (98-107) 07/27/18 17:40 Carbon Dioxide 26.3 mEq/L (21.0-31.0) 07/27/18 17:40 Anion Gap 13.7 (7.0-16.0) 07/27/18 17:40 BUN 19 mg/dL (7-25) 07/27/18 17:40 Creatinine 0.9 mg/dL (0.7-1.3) 07/27/18 17:40 Est GFR ( Amer) > 60.0 ml/min (>90) 07/27/18 17:40 Est GFR (Non-Af Amer) > 60.0 ml/min 07/27/18 17:40 BUN/Creatinine Ratio 21.1 07/27/18 17:40 Glucose 162 mg/dL (70-105) H 07/27/18 17:40 Calcium 9.6 mg/dL (8.6-10.3) 07/27/18 17:40 Total Bilirubin 0.3 mg/dL (0.3-1.0) 07/27/18 17:40 AST 20 U/L (13-39) 07/27/18 17:40 ALT 15 U/L (7-52) 07/27/18 17:40 Alkaline Phosphatase 89 U/L (34-104) 07/27/18 17:40 Total Protein 6.5 gm/dL (6.0-8.3) 07/27/18 17:40 Albumin 3.9 gm/dL (4.2-5.5) L 07/27/18 17:40 Globulin 2.6 gm/dL 07/27/18 17:40 Albumin/Globulin Ratio 1.5 (1.0-1.8) 07/27/18 17:40 Triglycerides 100 mg/dL (<150) 07/27/18 17:40 Cholesterol 125 mg/dL (<200) 07/27/18 17:40 LDL Cholesterol Direct 61 mg/dL (75-193) L 07/27/18 17:40 HDL Cholesterol 51 mg/dL (23-92) 07/27/18 17:40 TSH 1.09 uIU/ml (0.34-5.60) 07/27/18 17:40 Urine Source CLEAN C 07/27/18 19:15 Urine Color YELLOW 07/27/18 19:15 Urine Clarity CLEAR (CLEAR) 07/27/18 19:15 Urine pH 5.5 (4.6 - 8.0) 07/27/18 19:15 Ur Specific [place] 1.025 (1.005-1.030) 07/27/18 19:15 Urine Protein NEGATIVE mg/dL (NEGATIVE) 07/27/18 19:15 Urine Glucose (UA) NEGATIVE mg/dL (NEGATIVE) 07/27/18 19:15 Urine Ketones NEGATIVE mg/dL (NEGATIVE) 07/27/18 19:15 Urine Blood TRACE (NEGATIVE) 07/27/18 19:15 Urine Nitrate NEGATIVE (NEGATIVE) 07/27/18 19:15 Urine Bilirubin NEGATIVE (NEGATIVE) 07/27/18 19:15 Urine Urobilinogen 0.2 E.U./dL (0.2 - 1.0) 07/27/18 19:15 Ur Leukocyte Esterase NEGATIVE (NEGATIVE) 07/27/18 19:15 Urine RBC 2-5 /hpf (0-5) H 07/27/18 19:15 Urine WBC 0-2 /hpf (0-5) 07/27/18 19:15 Ur Epithelial Cells NONE SEEN /lpf (FEW) 07/27/18 19:15 Urine Bacteria NONE SEEN /hpf (NONE SEEN) 07/27/18 19:15 - Physical Exam Vitals and I&O: Vital Signs Temp 97.3 F 07/31/18 06:30 Pulse 95 07/31/18 08:36 Resp 20 07/31/18 06:30 BP 135/94 07/31/18 08:36 Pulse Ox 99 07/31/18 06:30 Intake & Output 07/30/18 07/31/18 07/31/18 18:59 06:59 18:59 Intake Total 1200 120 Balance 1200 120 Intake: Oral 1200 120 Other: # Voids 3 # Bowel Movements 1 Active Medications: Current Medications Acetaminophen (Tylenol) 650 mg PO Q4H PRN PRN Reason: Mild Pain/Headache/T above 101 Stop: 09/20/18 12:42 Last Admin: 07/30/18 22:50 Dose: 650 mg Al Hydrox/Mg Hydrox/Simethicone (Maalox) 30 ml PO Q6H PRN PRN Reason: Dyspepsia Stop: 09/20/18 12:42 Amlodipine Besylate (Norvasc) 5 mg PO DAILY [facility] Stop: 09/28/18 08:59 Last Admin: 07/31/18 08:36 Dose: 5 mg Divalproex Sodium (Depakote Dr) 500 mg PO BID [facility]; Protocol Stop: 09/29/18 16:59 Lorazepam (Ativan) 0.5 mg PO Q4HR PRN; Protocol PRN Reason: Agitation Stop: 09/20/18 15:29 Last Admin: 07/30/18 22:50 Dose: 0.5 mg Magnesium Hydroxide (Milk Of Magnesia) 30 ml PO HS PRN PRN Reason: Constipation Stop: 09/20/18 12:42 Olanzapine (Zyprexa) 15 mg PO HS [facility]; Protocol Stop: 09/25/18 20:59 Last Admin: 07/30/18 20:58 Dose: 15 mg Olanzapine (Zyprexa) 15 mg PO DAILY [facility]; Protocol Stop: 09/29/18 08:59 Last Admin: 07/31/18 08:36 Dose: 15 mg Venlafaxine HCl (Effexor Xr) 37.5 mg PO BID [facility]; Protocol Stop: 09/23/18 16:59 Last Admin: 07/31/18 08:37 Dose: 37.5 mg General: NAD HEENT: NC/AT Neck: Supple, No JVD Lungs: CTAB Cardiovascular: RRR, Normal S1, Normal S2, without murmur Abdomen: soft, positive bowel sound Extremities: clear Neurological: no change Internal Medicine Assmt/Plan - Assessment Assessment: ACUTE PSYCH DECOMPENSATION NON-SPECIFIC PSYCH D/O ESSENTIAL HTN - Plan Plan: CONT WITH CURRENT PSYCH SUPPORTIVE CARE AND MGT AMLODIPINE INCREASED TO 10MG QDAY CONT WITH CLONIDINE PRN Nutritional Asmnt/Malnutr-PDOC - Dietary Evaluation Malnutrition Findings (Please click <Entered> for more info): Nutritional Asmnt/Malnutrition Start: 07/29/18 18: 18 Text: Status: Active Freq: Protocol: Document 07/29/18 18:18 [email or web address] (Rec: 07/29/18 18:50 [email or web address]) Nutritional Asmnt/Malnutrition Patient General Information Nutritional Screening Low Risk Diagnosis acute psych decompensation Pertinent Medical Hx/Surgical Hx no known medical hx noted per MD H&P. Subjective Information Pt is 58 yr old male with no known medical hx admitted for pscyh decompensation. Pt on regular diet, PO intakes 100% x last 6 recorded meals. Current Diet Order/ Nutrition Support Regular Diet Pertinent Medications milk of magnesia, maalox Pertinent Labs Glucose 162 noted/no hx DM; will monitor. Nutritional Hx/Data Height 1.73 m Height (Calculated Centimeters) 172.7 Current Weight (lbs) 68.039 kg Weight (Calculated Kilograms) 68.0 Weight (Calculated Grams) 52590.9 [place] Body Weight 70 kg Body Mass Index (BMI) 22.8 Weight Status Approriate GI Symptoms GI Symptoms None Last BM 07/26 Difficult in: None Food Allergies No Skin Integrity/Comment: intact- no pressure injury/non -healing wounds noted. Current %PO Good (75-100%) Estimated Nutritional Goals BEE in Kcals: Using Current wt Calories/Kcals/Kg 25-30 Kcals Calculated 5346-0852 Protein: Using Current wt Protein g/k.8-1 Protein Calculated 54-68 Fluid: ml 2667-6039 Nutritional Problem 1. Problem Problem No nutrition diagnosis at this time. Intervention/Recommendation Comments Continue Regular Diet Rx- adequate to meet estimated nutritional needs. Expected Outcomes/Goals Expected Outcomes/Goals Maintain PO intakes 90-100% of all meals. Electronically Signed By: Annalisa Galaviz, MPH, RDN Clinical Dietitian 07/29/18 7:10 PM
--- NOTE | 2018-07-31 12:43 | Diagnostic Imaging Report ---
Some: Left fourth finger HISTORY: Trauma Findings: Multiple views of left fourth finger reviewed the study demonstrates nondisplaced fracture of the midshaft of the middle phalanx left fourth finger. The fracture doesn't extend into the articulating surfaces. IMPRESSION: Nondisplaced fracture middle phalanx left fourth finger
--- NOTE | 2018-08-01 00:01 | Progress Notes ---
DATE: 07/31/2018 SUBJECTIVE: The patient in the hospital, agitated and aggressive, easily agitated, argumentative, rambling, talking to self. Poorly oriented. Mom has been trying to get in touch with me, but the patient has been consistently not giving me consent to speak with her making this very clear and concrete, "Don't call my mother." There was a letter written by his psychiatrist of the court, which is in the chart. The name of the psychiatrist and the number of the psychiatrist are on the chart. I asked the patient if I have consent to speak with his psychiatrist; the patient states "No, you don't" and then walks away. The patient noted to be paranoid and difficult to care for because he is not really allowing me to contact anybody. He has also been somewhat more aggressive and agitated. As of late, I will be continuing to monitor. The patient has expressed that he wants to either go to a homeless residential. We have been really trying to convince him otherwise. He does seem to be considering going to a half-way facility. We have also offered him a correction setting or a sober living and he said no to this, so we are currently pursuing half-way at this time. We will initiate Depakote, continue dosing of Zyprexa, titrate accordingly. [facility]# [id number]
[2018-08-01] MEDS: Venlafaxine HCl ER 37.5 mg Tab PO SCH ×2 (10:15→17:54)
--- NOTE | 2018-08-02 01:29 | Progress Notes ---
DATE: 08/01/[address] Briseno. SUBJECTIVE: Case was discussed with staff of the patient, reviewed records. This is a 58-year-old male who was admitted on 07/22/2018 because he wanted to harm others and himself, wanted the police to shoot him with a history of schizophrenia with multiple hospitalizations found, using methamphetamine, heroin smoking ___ more aggressive, agitated, angry, was on a hold. He has been angry, depressed, restless, combative on the unit. The patient apparently he ____ to speak his mother or to talk to his psychiatrist. The patient continues to be paranoid, continues to be unpredictable, impulsive, has been aggressive, agitated. When talked to him, he would not answer any of my question. Internally preoccupied. He is on Depakote 500 mg twice a day and olanzapine 15 mg twice a day and Effexor 37.5 twice a day with no side effects, no sedation, no nausea, no extrapyramidal symptoms. We will continue outpatient group therapy, milieu therapy, adjust the medication as needed. [facility]# [id number]
[2018-08-02] MEDS: Venlafaxine HCl ER 37.5 mg Tab PO SCH ×2 (08:18→16:46)
--- NOTE | 2018-08-02 11:38 | Internal Medicine Prog Note ---
Internal Medicine Subjective - Subjective Service Date: 08/02/18 (states finger pain is ok) Patient is:: awake, in bed Per staff patient has:: no adverse event Internal Medicine Objective - Results Result Diagrams: 07/27/18 17:40 07/27/18 17:40 Recent Labs: Laboratory Last Values WBC 6.6 Th/cmm (4.8-10.8) 07/27/18 17:40 RBC 4.44 Mil/cmm (4.30-5.70) 07/27/18 17:40 Hgb 13.2 gm/dL (12-16) 07/27/18 17:40 Hct 40.0 % (41.0-60) L 07/27/18 17:40 MCV 90.1 fl (80-99) 07/27/18 17:40 MCH 29.8 pg (26.0-30.0) 07/27/18 17:40 MCHC Differential 33.0 pg (28.0-36.0) 07/27/18 17:40 RDW 13.1 % (11.5-20.0) 07/27/18 17:40 Plt Count 220 Th/cmm (150-400) 07/27/18 17:40 MPV 7.9 fl 07/27/18 17:40 Neutrophils % 44.9 % (40.0-80.0) 07/27/18 17:40 Lymphocytes % 43.7 % (20.0-50.0) 07/27/18 17:40 Monocytes % 6.9 % (2.0-10.0) 07/27/18 17:40 Eosinophils % 3.9 % (0.0-5.0) 07/27/18 17:40 Basophils % 0.6 % (0.0-2.0) 07/27/18 17:40 Sodium 139 mEq/L (136-145) 07/27/18 17:40 Potassium 4.0 mEq/L (3.5-5.1) 07/27/18 17:40 Chloride 103 mEq/L (98-107) 07/27/18 17:40 Carbon Dioxide 26.3 mEq/L (21.0-31.0) 07/27/18 17:40 Anion Gap 13.7 (7.0-16.0) 07/27/18 17:40 BUN 19 mg/dL (7-25) 07/27/18 17:40 Creatinine 0.9 mg/dL (0.7-1.3) 07/27/18 17:40 Est GFR ( Amer) > 60.0 ml/min (>90) 07/27/18 17:40 Est GFR (Non-Af Amer) > 60.0 ml/min 07/27/18 17:40 BUN/Creatinine Ratio 21.1 07/27/18 17:40 Glucose 162 mg/dL (70-105) H 07/27/18 17:40 Calcium 9.6 mg/dL (8.6-10.3) 07/27/18 17:40 Total Bilirubin 0.3 mg/dL (0.3-1.0) 07/27/18 17:40 AST 20 U/L (13-39) 07/27/18 17:40 ALT 15 U/L (7-52) 07/27/18 17:40 Alkaline Phosphatase 89 U/L (34-104) 07/27/18 17:40 Total Protein 6.5 gm/dL (6.0-8.3) 07/27/18 17:40 Albumin 3.9 gm/dL (4.2-5.5) L 07/27/18 17:40 Globulin 2.6 gm/dL 07/27/18 17:40 Albumin/Globulin Ratio 1.5 (1.0-1.8) 07/27/18 17:40 Triglycerides 100 mg/dL (<150) 07/27/18 17:40 Cholesterol 125 mg/dL (<200) 07/27/18 17:40 LDL Cholesterol Direct 61 mg/dL (75-193) L 07/27/18 17:40 HDL Cholesterol 51 mg/dL (23-92) 07/27/18 17:40 TSH 1.09 uIU/ml (0.34-5.60) 07/27/18 17:40 Urine Source CLEAN C 07/27/18 19:15 Urine Color YELLOW 07/27/18 19:15 Urine Clarity CLEAR (CLEAR) 07/27/18 19:15 Urine pH 5.5 (4.6 - 8.0) 07/27/18 19:15 Ur Specific [place] 1.025 (1.005-1.030) 07/27/18 19:15 Urine Protein NEGATIVE mg/dL (NEGATIVE) 07/27/18 19:15 Urine Glucose (UA) NEGATIVE mg/dL (NEGATIVE) 07/27/18 19:15 Urine Ketones NEGATIVE mg/dL (NEGATIVE) 07/27/18 19:15 Urine Blood TRACE (NEGATIVE) 07/27/18 19:15 Urine Nitrate NEGATIVE (NEGATIVE) 07/27/18 19:15 Urine Bilirubin NEGATIVE (NEGATIVE) 07/27/18 19:15 Urine Urobilinogen 0.2 E.U./dL (0.2 - 1.0) 07/27/18 19:15 Ur Leukocyte Esterase NEGATIVE (NEGATIVE) 07/27/18 19:15 Urine RBC 2-5 /hpf (0-5) H 07/27/18 19:15 Urine WBC 0-2 /hpf (0-5) 07/27/18 19:15 Ur Epithelial Cells NONE SEEN /lpf (FEW) 07/27/18 19:15 Urine Bacteria NONE SEEN /hpf (NONE SEEN) 07/27/18 19:15 - Physical Exam Vitals and I&O: Vital Signs Temp 97.6 F 08/02/18 05:42 Pulse 78 08/02/18 08:18 Resp 18 08/02/18 08:00 BP 141/69 08/02/18 08:18 Pulse Ox 99 08/02/18 05:42 Intake & Output 08/01/18 08/02/18 08/02/18 18:59 06:59 18:59 Intake Total 1500 240 Balance 1500 240 Intake: Oral 1500 240 Other: # Voids 3 2 # Bowel Movements 0 0 Active Medications: Current Medications Acetaminophen (Tylenol) 650 mg PO Q4H PRN PRN Reason: Mild Pain/Headache/T above 101 Stop: 09/20/18 12:42 Last Admin: 07/30/18 22:50 Dose: 650 mg Al Hydrox/Mg Hydrox/Simethicone (Maalox) 30 ml PO Q6H PRN PRN Reason: Dyspepsia Stop: 09/20/18 12:42 Amlodipine Besylate (Norvasc) 10 mg PO DAILY [facility] Stop: 09/29/18 12:29 Last Admin: 08/02/18 08:18 Dose: 10 mg Divalproex Sodium (Depakote Dr) 500 mg PO BID [facility]; Protocol Stop: 09/29/18 16:59 Last Admin: 08/02/18 08:19 Dose: 500 mg Ibuprofen (Motrin) 600 mg PO TID [facility] Stop: 09/29/18 13:59 Last Admin: 08/02/18 08:18 Dose: 600 mg Lorazepam (Ativan) 0.5 mg PO Q4HR PRN; Protocol PRN Reason: Agitation Stop: 09/20/18 15:29 Last Admin: 08/01/18 21:56 Dose: 0.5 mg Magnesium Hydroxide (Milk Of Magnesia) 30 ml PO HS PRN PRN Reason: Constipation Stop: 09/20/18 12:42 Olanzapine (Zyprexa) 15 mg PO HS [facility]; Protocol Stop: 09/25/18 20:59 Last Admin: 08/01/18 21:04 Dose: 15 mg Olanzapine (Zyprexa) 15 mg PO DAILY [facility]; Protocol Stop: 09/29/18 08:59 Last Admin: 08/02/18 08:19 Dose: 15 mg Venlafaxine HCl (Effexor Xr) 37.5 mg PO BID [facility]; Protocol Stop: 09/23/18 16:59 Last Admin: 08/02/18 08:18 Dose: 37.5 mg General: NAD HEENT: NC/AT Neck: Supple, No JVD Lungs: CTAB Cardiovascular: RRR, Normal S1, Normal S2, without murmur Abdomen: soft, positive bowel sound Extremities: clear Neurological: no change - Procedures Procedures: LEFT HAND XRAY: NONDISPLACED MIDDLE PHALANX FX Internal Medicine Assmt/Plan - Assessment Assessment: ACUTE PSYCH DECOMPENSATION NON-SPECIFIC PSYCH D/O ESSENTIAL HTN LEFT MIDDLE PHALANX NONDISPLACED FX - Plan Plan: CONT WITH CURRENT PSYCH SUPPORTIVE CARE AND MGT AMLODIPINE INCREASED TO 10MG QDAY CONT WITH CLONIDINE PRN IBUPROFEN TID WITH MEALS Nutritional Asmnt/Malnutr-PDOC - Dietary Evaluation Malnutrition Findings (Please click <Entered> for more info): Nutritional Asmnt/Malnutrition Start: 07/29/18 18: 18 Text: Status: Active Freq: Protocol: Document 07/29/18 18:18 [email or web address] (Rec: 07/29/18 18:50 [id number]) Nutritional Asmnt/Malnutrition Patient General Information Nutritional Screening Low Risk Diagnosis acute psych decompensation Pertinent Medical Hx/Surgical Hx no known medical hx noted per MD H&P. Subjective Information Pt is 58 yr old male with no known medical hx admitted for pscyh decompensation. Pt on regular diet, PO intakes 100% x last 6 recorded meals. Current Diet Order/ Nutrition Support Regular Diet Pertinent Medications milk of magnesia, maalox Pertinent Labs Glucose 162 noted/no hx DM; will monitor. Nutritional Hx/Data Height 1.73 m Height (Calculated Centimeters) 172.7 Current Weight (lbs) 68.039 kg Weight (Calculated Kilograms) 68.0 Weight (Calculated Grams) 05700.9 [place] Body Weight 70 kg Body Mass Index (BMI) 22.8 Weight Status Approriate GI Symptoms GI Symptoms None Last BM 07/26 Difficult in: None Food Allergies No Skin Integrity/Comment: intact- no pressure injury/non -healing wounds noted. Current %PO Good (75-100%) Estimated Nutritional Goals BEE in Kcals: Using Current wt Calories/Kcals/Kg 25-30 Kcals Calculated 2887-1376 Protein: Using Current wt Protein g/k.8-1 Protein Calculated 54-68 Fluid: ml 1369-2174 Nutritional Problem 1. Problem Problem No nutrition diagnosis at this time. Intervention/Recommendation Comments Continue Regular Diet Rx- adequate to meet estimated nutritional needs. Expected Outcomes/Goals Expected Outcomes/Goals Maintain PO intakes 90-100% of all meals. Electronically Signed By: Annalisa Galaviz, MPH, RDN Clinical Dietitian 07/29/18 7:10 PM
[2018-08-03] MEDS: Venlafaxine HCl ER 37.5 mg Tab PO SCH ×2 (09:00→16:38)
--- NOTE | 2018-08-03 11:56 | Progress Notes ---
DATE: 08/02/[address] Briseno. IDENTIFYING DATA: A 58-year-old male with history of schizophrenia. Today on [id number] evaluation, the patient presented as disorganized, delusional, needs a lot of redirection as needed to just to have somewhat of a linear conversation. The patient reports no complications and side effects of medication. MENTAL STATUS EXAMINATION: Aggressive, easily agitated, anger, breathless and combative ____. ASSESSMENT AND PLAN: We will continue with the current medication regimen as he currently has 30 mg of olanzapine and Depakote 500 p.o. b.i.d. with Effexor 75 a day to target the patient's ongoing severe psychotic behavior. [facility]# [id number]
--- NOTE | 2018-08-03 12:07 | Internal Medicine Prog Note ---
Internal Medicine Subjective - Subjective Service Date: 08/03/18 (no events) Patient seen and examined:: without staff Patient is:: awake, in bed Per staff patient has:: no adverse event Internal Medicine Objective - Results Result Diagrams: 07/27/18 17:40 07/27/18 17:40 Recent Labs: Laboratory Last Values WBC 6.6 Th/cmm (4.8-10.8) 07/27/18 17:40 RBC 4.44 Mil/cmm (4.30-5.70) 07/27/18 17:40 Hgb 13.2 gm/dL (12-16) 07/27/18 17:40 Hct 40.0 % (41.0-60) L 07/27/18 17:40 MCV 90.1 fl (80-99) 07/27/18 17:40 MCH 29.8 pg (26.0-30.0) 07/27/18 17:40 MCHC Differential 33.0 pg (28.0-36.0) 07/27/18 17:40 RDW 13.1 % (11.5-20.0) 07/27/18 17:40 Plt Count 220 Th/cmm (150-400) 07/27/18 17:40 MPV 7.9 fl 07/27/18 17:40 Neutrophils % 44.9 % (40.0-80.0) 07/27/18 17:40 Lymphocytes % 43.7 % (20.0-50.0) 07/27/18 17:40 Monocytes % 6.9 % (2.0-10.0) 07/27/18 17:40 Eosinophils % 3.9 % (0.0-5.0) 07/27/18 17:40 Basophils % 0.6 % (0.0-2.0) 07/27/18 17:40 Sodium 139 mEq/L (136-145) 07/27/18 17:40 Potassium 4.0 mEq/L (3.5-5.1) 07/27/18 17:40 Chloride 103 mEq/L (98-107) 07/27/18 17:40 Carbon Dioxide 26.3 mEq/L (21.0-31.0) 07/27/18 17:40 Anion Gap 13.7 (7.0-16.0) 07/27/18 17:40 BUN 19 mg/dL (7-25) 07/27/18 17:40 Creatinine 0.9 mg/dL (0.7-1.3) 07/27/18 17:40 Est GFR ( Amer) > 60.0 ml/min (>90) 07/27/18 17:40 Est GFR (Non-Af Amer) > 60.0 ml/min 07/27/18 17:40 BUN/Creatinine Ratio 21.1 07/27/18 17:40 Glucose 162 mg/dL (70-105) H 07/27/18 17:40 Calcium 9.6 mg/dL (8.6-10.3) 07/27/18 17:40 Total Bilirubin 0.3 mg/dL (0.3-1.0) 07/27/18 17:40 AST 20 U/L (13-39) 07/27/18 17:40 ALT 15 U/L (7-52) 07/27/18 17:40 Alkaline Phosphatase 89 U/L (34-104) 07/27/18 17:40 Total Protein 6.5 gm/dL (6.0-8.3) 07/27/18 17:40 Albumin 3.9 gm/dL (4.2-5.5) L 07/27/18 17:40 Globulin 2.6 gm/dL 07/27/18 17:40 Albumin/Globulin Ratio 1.5 (1.0-1.8) 07/27/18 17:40 Triglycerides 100 mg/dL (<150) 07/27/18 17:40 Cholesterol 125 mg/dL (<200) 07/27/18 17:40 LDL Cholesterol Direct 61 mg/dL (75-193) L 07/27/18 17:40 HDL Cholesterol 51 mg/dL (23-92) 07/27/18 17:40 TSH 1.09 uIU/ml (0.34-5.60) 07/27/18 17:40 Urine Source CLEAN C 07/27/18 19:15 Urine Color YELLOW 07/27/18 19:15 Urine Clarity CLEAR (CLEAR) 07/27/18 19:15 Urine pH 5.5 (4.6 - 8.0) 07/27/18 19:15 Ur Specific [place] 1.025 (1.005-1.030) 07/27/18 19:15 Urine Protein NEGATIVE mg/dL (NEGATIVE) 07/27/18 19:15 Urine Glucose (UA) NEGATIVE mg/dL (NEGATIVE) 07/27/18 19:15 Urine Ketones NEGATIVE mg/dL (NEGATIVE) 07/27/18 19:15 Urine Blood TRACE (NEGATIVE) 07/27/18 19:15 Urine Nitrate NEGATIVE (NEGATIVE) 07/27/18 19:15 Urine Bilirubin NEGATIVE (NEGATIVE) 07/27/18 19:15 Urine Urobilinogen 0.2 E.U./dL (0.2 - 1.0) 07/27/18 19:15 Ur Leukocyte Esterase NEGATIVE (NEGATIVE) 07/27/18 19:15 Urine RBC 2-5 /hpf (0-5) H 07/27/18 19:15 Urine WBC 0-2 /hpf (0-5) 07/27/18 19:15 Ur Epithelial Cells NONE SEEN /lpf (FEW) 07/27/18 19:15 Urine Bacteria NONE SEEN /hpf (NONE SEEN) 07/27/18 19:15 - Physical Exam Vitals and I&O: Vital Signs Temp 97.8 F 08/02/18 14:43 Pulse 70 08/03/18 08:52 Resp 18 08/02/18 20:00 BP 157/94 08/03/18 08:52 Pulse Ox 98 08/02/18 14:43 Intake & Output 08/02/18 08/03/18 08/03/18 18:59 06:59 18:59 Intake Total 1000 Balance 1000 Intake: Oral 1000 Other: # Voids 5 Active Medications: Current Medications Acetaminophen (Tylenol) 650 mg PO Q4H PRN PRN Reason: Mild Pain/Headache/T above 101 Stop: 09/20/18 12:42 Last Admin: 07/30/18 22:50 Dose: 650 mg Al Hydrox/Mg Hydrox/Simethicone (Maalox) 30 ml PO Q6H PRN PRN Reason: Dyspepsia Stop: 09/20/18 12:42 Amlodipine Besylate (Norvasc) 10 mg PO DAILY [facility] Stop: 09/29/18 12:29 Last Admin: 08/03/18 08:52 Dose: 10 mg Divalproex Sodium (Depakote Dr) 500 mg PO BID [facility]; Protocol Stop: 09/29/18 16:59 Last Admin: 08/03/18 08:50 Dose: 500 mg Ibuprofen (Motrin) 600 mg PO TID [facility] Stop: 09/29/18 13:59 Last Admin: 08/03/18 08:51 Dose: 600 mg Lorazepam (Ativan) 0.5 mg PO Q4HR PRN; Protocol PRN Reason: Agitation Stop: 09/20/18 15:29 Last Admin: 08/03/18 08:53 Dose: 0.5 mg Magnesium Hydroxide (Milk Of Magnesia) 30 ml PO HS PRN PRN Reason: Constipation Stop: 09/20/18 12:42 Olanzapine (Zyprexa) 15 mg PO HS [facility]; Protocol Stop: 09/25/18 20:59 Last Admin: 08/02/18 20:49 Dose: 15 mg Olanzapine (Zyprexa) 15 mg PO DAILY [facility]; Protocol Stop: 09/29/18 08:59 Last Admin: 08/03/18 08:51 Dose: 15 mg Venlafaxine HCl (Effexor Xr) 37.5 mg PO BID [facility]; Protocol Stop: 09/23/18 16:59 Last Admin: 08/02/18 16:46 Dose: 37.5 mg General: NAD HEENT: NC/AT Neck: Supple, No JVD Lungs: CTAB Cardiovascular: RRR, Normal S1, Normal S2, without murmur Abdomen: soft, positive bowel sound Extremities: clear Neurological: no change Internal Medicine Assmt/Plan - Assessment Assessment: ACUTE PSYCH DECOMPENSATION NON-SPECIFIC PSYCH D/O ESSENTIAL HTN LEFT MIDDLE PHALANX NONDISPLACED FX - Plan Plan: CONT WITH CURRENT PSYCH SUPPORTIVE CARE AND MGT AMLODIPINE INCREASED TO 10MG QDAY CONT WITH CLONIDINE PRN IBUPROFEN TID WITH MEALS Nutritional Asmnt/Malnutr-PDOC - Dietary Evaluation Malnutrition Findings (Please click <Entered> for more info): Nutritional Asmnt/Malnutrition Start: 07/29/18 18: 18 Text: Status: Active Freq: Protocol: Document 07/29/18 18:18 [email or web address] (Rec: 07/29/18 18:50 [email or web address]) Nutritional Asmnt/Malnutrition Patient General Information Nutritional Screening Low Risk Diagnosis acute psych decompensation Pertinent Medical Hx/Surgical Hx no known medical hx noted per MD H&P. Subjective Information Pt is 58 yr old male with no known medical hx admitted for pscyh decompensation. Pt on regular diet, PO intakes 100% x last 6 recorded meals. Current Diet Order/ Nutrition Support Regular Diet Pertinent Medications milk of magnesia, maalox Pertinent Labs Glucose 162 noted/no hx DM; will monitor. Nutritional Hx/Data Height 1.73 m Height (Calculated Centimeters) 172.7 Current Weight (lbs) 68.039 kg Weight (Calculated Kilograms) 68.0 Weight (Calculated Grams) 83601.9 [place] Body Weight 70 kg Body Mass Index (BMI) 22.8 Weight Status Approriate GI Symptoms GI Symptoms None Last BM 07/26 Difficult in: None Food Allergies No Skin Integrity/Comment: intact- no pressure injury/non -healing wounds noted. Current %PO Good (75-100%) Estimated Nutritional Goals BEE in Kcals: Using Current wt Calories/Kcals/Kg 25-30 Kcals Calculated 3446-8400 Protein: Using Current wt Protein g/k.8-1 Protein Calculated 54-68 Fluid: ml 2579-3586 Nutritional Problem 1. Problem Problem No nutrition diagnosis at this time. Intervention/Recommendation Comments Continue Regular Diet Rx- adequate to meet estimated nutritional needs. Expected Outcomes/Goals Expected Outcomes/Goals Maintain PO intakes 90-100% of all meals. Electronically Signed By: Annalisa Galaviz, MPH, RDN Clinical Dietitian 07/29/18 7:10 PM
--- NOTE | 2018-08-03 23:52 | Progress Notes ---
DATE: SUBJECTIVE: The patient was seen and evaluated. The patient was interviewed. No acute events overnight. On today's evaluation, the patient continues to be expressing some anxiety. He denies any complications, side effects of the medications. He at times is irritable, ____ combative, irritable, agitated ____. ASSESSMENT: History of schizoaffective disorder. PLAN: We will continue with the current medication regimen which include Depakote, olanzapine and also Effexor twice a day to target the patient's symptoms. JOB# [id number]
[2018-08-04] MEDS: Venlafaxine HCl ER 37.5 mg Tab PO SCH ×2 (09:48→16:54)
--- NOTE | 2018-08-04 23:13 | Internal Medicine Prog Note ---
Internal Medicine Subjective - Subjective Service Date: 08/04/18 (no events) Patient seen and examined:: without staff Patient is:: awake, in bed Per staff patient has:: no adverse event Internal Medicine Objective - Results Result Diagrams: 07/27/18 17:40 07/27/18 17:40 Recent Labs: Laboratory Last Values WBC 6.6 Th/cmm (4.8-10.8) 07/27/18 17:40 RBC 4.44 Mil/cmm (4.30-5.70) 07/27/18 17:40 Hgb 13.2 gm/dL (12-16) 07/27/18 17:40 Hct 40.0 % (41.0-60) L 07/27/18 17:40 MCV 90.1 fl (80-99) 07/27/18 17:40 MCH 29.8 pg (26.0-30.0) 07/27/18 17:40 MCHC Differential 33.0 pg (28.0-36.0) 07/27/18 17:40 RDW 13.1 % (11.5-20.0) 07/27/18 17:40 Plt Count 220 Th/cmm (150-400) 07/27/18 17:40 MPV 7.9 fl 07/27/18 17:40 Neutrophils % 44.9 % (40.0-80.0) 07/27/18 17:40 Lymphocytes % 43.7 % (20.0-50.0) 07/27/18 17:40 Monocytes % 6.9 % (2.0-10.0) 07/27/18 17:40 Eosinophils % 3.9 % (0.0-5.0) 07/27/18 17:40 Basophils % 0.6 % (0.0-2.0) 07/27/18 17:40 Sodium 139 mEq/L (136-145) 07/27/18 17:40 Potassium 4.0 mEq/L (3.5-5.1) 07/27/18 17:40 Chloride 103 mEq/L (98-107) 07/27/18 17:40 Carbon Dioxide 26.3 mEq/L (21.0-31.0) 07/27/18 17:40 Anion Gap 13.7 (7.0-16.0) 07/27/18 17:40 BUN 19 mg/dL (7-25) 07/27/18 17:40 Creatinine 0.9 mg/dL (0.7-1.3) 07/27/18 17:40 Est GFR ( Amer) > 60.0 ml/min (>90) 07/27/18 17:40 Est GFR (Non-Af Amer) > 60.0 ml/min 07/27/18 17:40 BUN/Creatinine Ratio 21.1 07/27/18 17:40 Glucose 162 mg/dL (70-105) H 07/27/18 17:40 Calcium 9.6 mg/dL (8.6-10.3) 07/27/18 17:40 Total Bilirubin 0.3 mg/dL (0.3-1.0) 07/27/18 17:40 AST 20 U/L (13-39) 07/27/18 17:40 ALT 15 U/L (7-52) 07/27/18 17:40 Alkaline Phosphatase 89 U/L (34-104) 07/27/18 17:40 Total Protein 6.5 gm/dL (6.0-8.3) 07/27/18 17:40 Albumin 3.9 gm/dL (4.2-5.5) L 07/27/18 17:40 Globulin 2.6 gm/dL 07/27/18 17:40 Albumin/Globulin Ratio 1.5 (1.0-1.8) 07/27/18 17:40 Triglycerides 100 mg/dL (<150) 07/27/18 17:40 Cholesterol 125 mg/dL (<200) 07/27/18 17:40 LDL Cholesterol Direct 61 mg/dL (75-193) L 07/27/18 17:40 HDL Cholesterol 51 mg/dL (23-92) 07/27/18 17:40 TSH 1.09 uIU/ml (0.34-5.60) 07/27/18 17:40 Urine Source CLEAN C 07/27/18 19:15 Urine Color YELLOW 07/27/18 19:15 Urine Clarity CLEAR (CLEAR) 07/27/18 19:15 Urine pH 5.5 (4.6 - 8.0) 07/27/18 19:15 Ur Specific [place] 1.025 (1.005-1.030) 07/27/18 19:15 Urine Protein NEGATIVE mg/dL (NEGATIVE) 07/27/18 19:15 Urine Glucose (UA) NEGATIVE mg/dL (NEGATIVE) 07/27/18 19:15 Urine Ketones NEGATIVE mg/dL (NEGATIVE) 07/27/18 19:15 Urine Blood TRACE (NEGATIVE) 07/27/18 19:15 Urine Nitrate NEGATIVE (NEGATIVE) 07/27/18 19:15 Urine Bilirubin NEGATIVE (NEGATIVE) 07/27/18 19:15 Urine Urobilinogen 0.2 E.U./dL (0.2 - 1.0) 07/27/18 19:15 Ur Leukocyte Esterase NEGATIVE (NEGATIVE) 07/27/18 19:15 Urine RBC 2-5 /hpf (0-5) H 07/27/18 19:15 Urine WBC 0-2 /hpf (0-5) 07/27/18 19:15 Ur Epithelial Cells NONE SEEN /lpf (FEW) 07/27/18 19:15 Urine Bacteria NONE SEEN /hpf (NONE SEEN) 07/27/18 19:15 - Physical Exam Vitals and I&O: Vital Signs Temp 98.4 F 08/04/18 20:12 Pulse 94 08/04/18 20:12 Resp 20 08/04/18 20:12 BP 121/71 08/04/18 20:12 Pulse Ox 98 08/04/18 20:12 Intake & Output 08/04/18 08/04/18 08/05/18 06:59 18:59 06:59 Intake Total 240 1400 240 Balance 240 1400 240 Intake: Oral 240 1400 240 Other: # Voids 3 4 1 # Bowel Movements 0 1 Active Medications: Current Medications Acetaminophen (Tylenol) 650 mg PO Q4H PRN PRN Reason: Mild Pain/Headache/T above 101 Stop: 09/20/18 12:42 Last Admin: 07/30/18 22:50 Dose: 650 mg Al Hydrox/Mg Hydrox/Simethicone (Maalox) 30 ml PO Q6H PRN PRN Reason: Dyspepsia Stop: 09/20/18 12:42 Amlodipine Besylate (Norvasc) 10 mg PO DAILY [facility] Stop: 09/29/18 12:29 Last Admin: 08/04/18 09:48 Dose: 10 mg Divalproex Sodium (Depakote Dr) 500 mg PO BID [facility]; Protocol Stop: 09/29/18 16:59 Last Admin: 08/04/18 16:54 Dose: 500 mg Ibuprofen (Motrin) 600 mg PO TID [facility] Stop: 09/29/18 13:59 Last Admin: 08/04/18 20:57 Dose: 600 mg Lorazepam (Ativan) 0.5 mg PO Q4HR PRN; Protocol PRN Reason: Agitation Stop: 09/20/18 15:29 Last Admin: 08/04/18 20:59 Dose: 0.5 mg Magnesium Hydroxide (Milk Of Magnesia) 30 ml PO HS PRN PRN Reason: Constipation Stop: 09/20/18 12:42 Olanzapine (Zyprexa) 15 mg PO HS [facility]; Protocol Stop: 09/25/18 20:59 Last Admin: 08/04/18 20:58 Dose: 15 mg Olanzapine (Zyprexa) 15 mg PO DAILY [facility]; Protocol Stop: 09/29/18 08:59 Last Admin: 08/04/18 09:49 Dose: 15 mg Venlafaxine HCl (Effexor Xr) 37.5 mg PO BID [facility]; Protocol Stop: 09/23/18 16:59 Last Admin: 08/04/18 16:54 Dose: 37.5 mg General: NAD HEENT: NC/AT Neck: Supple, No JVD Lungs: CTAB Cardiovascular: RRR, Normal S1, Normal S2, without murmur Abdomen: soft, positive bowel sound Extremities: clear Neurological: no change Internal Medicine Assmt/Plan - Assessment Assessment: ACUTE PSYCH DECOMPENSATION NON-SPECIFIC PSYCH D/O ESSENTIAL HTN LEFT MIDDLE PHALANX NONDISPLACED FX - Plan Plan: CONT WITH CURRENT PSYCH SUPPORTIVE CARE AND MGT AMLODIPINE INCREASED TO 10MG QDAY CONT WITH CLONIDINE PRN IBUPROFEN TID WITH MEALS Nutritional Asmnt/Malnutr-PDOC - Dietary Evaluation Malnutrition Findings (Please click <Entered> for more info): Nutritional Asmnt/Malnutrition Start: 07/29/18 18: 18 Text: Status: Active Freq: Protocol: Document 07/29/18 18:18 [email or web address] (Rec: 07/29/18 18:50 [email or web address]) Nutritional Asmnt/Malnutrition Patient General Information Nutritional Screening Low Risk Diagnosis acute psych decompensation Pertinent Medical Hx/Surgical Hx no known medical hx noted per MD H&P. Subjective Information Pt is 58 yr old male with no known medical hx admitted for pscyh decompensation. Pt on regular diet, PO intakes 100% x last 6 recorded meals. Current Diet Order/ Nutrition Support Regular Diet Pertinent Medications milk of magnesia, maalox Pertinent Labs Glucose 162 noted/no hx DM; will monitor. Nutritional Hx/Data Height 1.73 m Height (Calculated Centimeters) 172.7 Current Weight (lbs) 68.039 kg Weight (Calculated Kilograms) 68.0 Weight (Calculated Grams) 89433.9 [place] Body Weight 70 kg Body Mass Index (BMI) 22.8 Weight Status Approriate GI Symptoms GI Symptoms None Last BM 07/26 Difficult in: None Food Allergies No Skin Integrity/Comment: intact- no pressure injury/non -healing wounds noted. Current %PO Good (75-100%) Estimated Nutritional Goals BEE in Kcals: Using Current wt Calories/Kcals/Kg 25-30 Kcals Calculated 5264-8415 Protein: Using Current wt Protein g/k.8-1 Protein Calculated 54-68 Fluid: ml 9185-8492 Nutritional Problem 1. Problem Problem No nutrition diagnosis at this time. Intervention/Recommendation Comments Continue Regular Diet Rx- adequate to meet estimated nutritional needs. Expected Outcomes/Goals Expected Outcomes/Goals Maintain PO intakes 90-100% of all meals. Electronically Signed By: Annalisa Galaviz, MPH, RDN Clinical Dietitian 07/29/18 7:10 PM
--- NOTE | 2018-08-05 01:26 | Progress Notes ---
DATE: 08/04/2018 SUBJECTIVE: A 58-year-old male with history of schizophrenia, still impulsive, unpredictable, but seems somewhat calmer, more able to verbalize needs. States that he wants to go to rehab. The patient does not want his mom involved in his decisions at all. He does not give me consent to talk with her today and nor does he give me consents to talk to the previous psychiatrist. Mom has been trying to make more decisions for him and dictating care. The patient frustrated about this. The patient is sometimes angry, upset, but generally calmer over the past couple of days, sometimes feels that others are talking about him. Tolerant of treatment thus far. Currently on Zyprexa. PLAN: We will continue to monitor. The patient likely approaching his baseline. We will attempt to confirm a safe discharge. JOB# [id number]
[2018-08-05] MEDS: Venlafaxine HCl ER 37.5 mg Tab PO SCH ×2 (08:47→16:39)
--- NOTE | 2018-08-05 10:30 | Internal Medicine Prog Note ---
Internal Medicine Subjective - Subjective Service Date: 08/05/18 (no events) Patient seen and examined:: without staff Patient is:: awake, in bed Per staff patient has:: no adverse event Internal Medicine Objective - Results Result Diagrams: 07/27/18 17:40 07/27/18 17:40 Recent Labs: Laboratory Last Values WBC 6.6 Th/cmm (4.8-10.8) 07/27/18 17:40 RBC 4.44 Mil/cmm (4.30-5.70) 07/27/18 17:40 Hgb 13.2 gm/dL (12-16) 07/27/18 17:40 Hct 40.0 % (41.0-60) L 07/27/18 17:40 MCV 90.1 fl (80-99) 07/27/18 17:40 MCH 29.8 pg (26.0-30.0) 07/27/18 17:40 MCHC Differential 33.0 pg (28.0-36.0) 07/27/18 17:40 RDW 13.1 % (11.5-20.0) 07/27/18 17:40 Plt Count 220 Th/cmm (150-400) 07/27/18 17:40 MPV 7.9 fl 07/27/18 17:40 Neutrophils % 44.9 % (40.0-80.0) 07/27/18 17:40 Lymphocytes % 43.7 % (20.0-50.0) 07/27/18 17:40 Monocytes % 6.9 % (2.0-10.0) 07/27/18 17:40 Eosinophils % 3.9 % (0.0-5.0) 07/27/18 17:40 Basophils % 0.6 % (0.0-2.0) 07/27/18 17:40 Sodium 139 mEq/L (136-145) 07/27/18 17:40 Potassium 4.0 mEq/L (3.5-5.1) 07/27/18 17:40 Chloride 103 mEq/L (98-107) 07/27/18 17:40 Carbon Dioxide 26.3 mEq/L (21.0-31.0) 07/27/18 17:40 Anion Gap 13.7 (7.0-16.0) 07/27/18 17:40 BUN 19 mg/dL (7-25) 07/27/18 17:40 Creatinine 0.9 mg/dL (0.7-1.3) 07/27/18 17:40 Est GFR ( Amer) > 60.0 ml/min (>90) 07/27/18 17:40 Est GFR (Non-Af Amer) > 60.0 ml/min 07/27/18 17:40 BUN/Creatinine Ratio 21.1 07/27/18 17:40 Glucose 162 mg/dL (70-105) H 07/27/18 17:40 Calcium 9.6 mg/dL (8.6-10.3) 07/27/18 17:40 Total Bilirubin 0.3 mg/dL (0.3-1.0) 07/27/18 17:40 AST 20 U/L (13-39) 07/27/18 17:40 ALT 15 U/L (7-52) 07/27/18 17:40 Alkaline Phosphatase 89 U/L (34-104) 07/27/18 17:40 Total Protein 6.5 gm/dL (6.0-8.3) 07/27/18 17:40 Albumin 3.9 gm/dL (4.2-5.5) L 07/27/18 17:40 Globulin 2.6 gm/dL 07/27/18 17:40 Albumin/Globulin Ratio 1.5 (1.0-1.8) 07/27/18 17:40 Triglycerides 100 mg/dL (<150) 07/27/18 17:40 Cholesterol 125 mg/dL (<200) 07/27/18 17:40 LDL Cholesterol Direct 61 mg/dL (75-193) L 07/27/18 17:40 HDL Cholesterol 51 mg/dL (23-92) 07/27/18 17:40 TSH 1.09 uIU/ml (0.34-5.60) 07/27/18 17:40 Urine Source CLEAN C 07/27/18 19:15 Urine Color YELLOW 07/27/18 19:15 Urine Clarity CLEAR (CLEAR) 07/27/18 19:15 Urine pH 5.5 (4.6 - 8.0) 07/27/18 19:15 Ur Specific [place] 1.025 (1.005-1.030) 07/27/18 19:15 Urine Protein NEGATIVE mg/dL (NEGATIVE) 07/27/18 19:15 Urine Glucose (UA) NEGATIVE mg/dL (NEGATIVE) 07/27/18 19:15 Urine Ketones NEGATIVE mg/dL (NEGATIVE) 07/27/18 19:15 Urine Blood TRACE (NEGATIVE) 07/27/18 19:15 Urine Nitrate NEGATIVE (NEGATIVE) 07/27/18 19:15 Urine Bilirubin NEGATIVE (NEGATIVE) 07/27/18 19:15 Urine Urobilinogen 0.2 E.U./dL (0.2 - 1.0) 07/27/18 19:15 Ur Leukocyte Esterase NEGATIVE (NEGATIVE) 07/27/18 19:15 Urine RBC 2-5 /hpf (0-5) H 07/27/18 19:15 Urine WBC 0-2 /hpf (0-5) 07/27/18 19:15 Ur Epithelial Cells NONE SEEN /lpf (FEW) 07/27/18 19:15 Urine Bacteria NONE SEEN /hpf (NONE SEEN) 07/27/18 19:15 - Physical Exam Vitals and I&O: Vital Signs Temp 0 F 08/05/18 06:01 Pulse 94 08/04/18 20:12 Resp 20 08/04/18 20:12 BP 121/71 08/04/18 20:12 Pulse Ox 98 08/04/18 20:12 Intake & Output 08/04/18 08/05/18 08/05/18 18:59 06:59 18:59 Intake Total 1400 240 Balance 1400 240 Intake: Oral 1400 240 Other: # Voids 4 3 # Bowel Movements 1 0 Active Medications: Current Medications Acetaminophen (Tylenol) 650 mg PO Q4H PRN PRN Reason: Mild Pain/Headache/T above 101 Stop: 09/20/18 12:42 Last Admin: 07/30/18 22:50 Dose: 650 mg Al Hydrox/Mg Hydrox/Simethicone (Maalox) 30 ml PO Q6H PRN PRN Reason: Dyspepsia Stop: 09/20/18 12:42 Amlodipine Besylate (Norvasc) 10 mg PO DAILY [facility] Stop: 09/29/18 12:29 Last Admin: 08/05/18 08:48 Dose: Not Given Divalproex Sodium (Depakote Dr) 500 mg PO BID [facility]; Protocol Stop: 09/29/18 16:59 Last Admin: 08/05/18 08:48 Dose: 500 mg Ibuprofen (Motrin) 600 mg PO TID [facility] Stop: 09/29/18 13:59 Last Admin: 08/05/18 08:48 Dose: 600 mg Lorazepam (Ativan) 0.5 mg PO Q4HR PRN; Protocol PRN Reason: Agitation Stop: 10/04/18 08:44 Magnesium Hydroxide (Milk Of Magnesia) 30 ml PO HS PRN PRN Reason: Constipation Stop: 09/20/18 12:42 Olanzapine (Zyprexa) 15 mg PO HS [facility]; Protocol Stop: 09/25/18 20:59 Last Admin: 08/04/18 20:58 Dose: 15 mg Olanzapine (Zyprexa) 15 mg PO DAILY [facility]; Protocol Stop: 09/29/18 08:59 Last Admin: 08/05/18 08:51 Dose: 15 mg Venlafaxine HCl (Effexor Xr) 37.5 mg PO BID [facility]; Protocol Stop: 09/23/18 16:59 Last Admin: 08/05/18 08:47 Dose: 37.5 mg General: NAD HEENT: NC/AT Neck: Supple, No JVD Lungs: CTAB Cardiovascular: RRR, Normal S1, Normal S2, without murmur Abdomen: soft, positive bowel sound Extremities: clear Neurological: no change Internal Medicine Assmt/Plan - Assessment Assessment: ACUTE PSYCH DECOMPENSATION NON-SPECIFIC PSYCH D/O ESSENTIAL HTN LEFT MIDDLE PHALANX NONDISPLACED FX - Plan Plan: CONT WITH CURRENT PSYCH SUPPORTIVE CARE AND MGT AMLODIPINE INCREASED TO 10MG QDAY CONT WITH CLONIDINE PRN IBUPROFEN TID WITH MEALS Nutritional Asmnt/Malnutr-PDOC - Dietary Evaluation Malnutrition Findings (Please click <Entered> for more info): Nutritional Asmnt/Malnutrition Start: 07/29/18 18: 18 Text: Status: Active Freq: Protocol: Document 07/29/18 18:18 [email or web address] (Rec: 07/29/18 18:50 [email or web address]) Nutritional Asmnt/Malnutrition Patient General Information Nutritional Screening Low Risk Diagnosis acute psych decompensation Pertinent Medical Hx/Surgical Hx no known medical hx noted per MD H&P. Subjective Information Pt is 58 yr old male with no known medical hx admitted for pscyh decompensation. Pt on regular diet, PO intakes 100% x last 6 recorded meals. Current Diet Order/ Nutrition Support Regular Diet Pertinent Medications milk of magnesia, maalox Pertinent Labs Glucose 162 noted/no hx DM; will monitor. Nutritional Hx/Data Height 1.73 m Height (Calculated Centimeters) 172.7 Current Weight (lbs) 68.039 kg Weight (Calculated Kilograms) 68.0 Weight (Calculated Grams) 68196.9 [place] Body Weight 70 kg Body Mass Index (BMI) 22.8 Weight Status Approriate GI Symptoms GI Symptoms None Last BM 07/26 Difficult in: None Food Allergies No Skin Integrity/Comment: intact- no pressure injury/non -healing wounds noted. Current %PO Good (75-100%) Estimated Nutritional Goals BEE in Kcals: Using Current wt Calories/Kcals/Kg 25-30 Kcals Calculated 0457-8716 Protein: Using Current wt Protein g/k.8-1 Protein Calculated 54-68 Fluid: ml 8297-3280 Nutritional Problem 1. Problem Problem No nutrition diagnosis at this time. Intervention/Recommendation Comments Continue Regular Diet Rx- adequate to meet estimated nutritional needs. Expected Outcomes/Goals Expected Outcomes/Goals Maintain PO intakes 90-100% of all meals. Electronically Signed By: Annalisa Galaviz, MPH, RDN Clinical Dietitian 07/29/18 7:10 PM
--- NOTE | 2018-08-05 15:03 | Progress Notes ---
DATE: 08/05/2018 SUBJECTIVE: The patient in the hospital, withdrawn, mostly keeps to self. He is a lot calmer, no longer is aggressive, psychosis dissipating, better reality testing, A and O to name, place, situation, month. Still unpredictable, some mood swings, but no aggressive behaviors. He is amenable, talking to me, sleeping well, eating well. Medications were reviewed including doses and frequencies. Vitals were reviewed. ASSESSMENT AND PLAN: The patient is improving, likely approaching his baseline, psychosis dissipating. We are pending currently a safe discharge plan. [facility]# [id number]
[2018-08-06] MEDS: Venlafaxine HCl ER 37.5 mg Tab PO SCH ×2 (08:34→17:21)
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
[2018-08-07] MEDS: Venlafaxine HCl ER 37.5 mg Tab PO SCH ×2 (09:03→17:04)
--- NOTE | 2018-08-07 09:36 | Internal Medicine Prog Note ---
Internal Medicine Subjective - Subjective Service Date: 08/07/18 (comfortable) Patient seen and examined:: without staff Patient is:: awake, in bed Per staff patient has:: no adverse event Internal Medicine Objective - Results Result Diagrams: 07/27/18 17:40 07/27/18 17:40 Recent Labs: Laboratory Last Values WBC 6.6 Th/cmm (4.8-10.8) 07/27/18 17:40 RBC 4.44 Mil/cmm (4.30-5.70) 07/27/18 17:40 Hgb 13.2 gm/dL (12-16) 07/27/18 17:40 Hct 40.0 % (41.0-60) L 07/27/18 17:40 MCV 90.1 fl (80-99) 07/27/18 17:40 MCH 29.8 pg (26.0-30.0) 07/27/18 17:40 MCHC Differential 33.0 pg (28.0-36.0) 07/27/18 17:40 RDW 13.1 % (11.5-20.0) 07/27/18 17:40 Plt Count 220 Th/cmm (150-400) 07/27/18 17:40 MPV 7.9 fl 07/27/18 17:40 Neutrophils % 44.9 % (40.0-80.0) 07/27/18 17:40 Lymphocytes % 43.7 % (20.0-50.0) 07/27/18 17:40 Monocytes % 6.9 % (2.0-10.0) 07/27/18 17:40 Eosinophils % 3.9 % (0.0-5.0) 07/27/18 17:40 Basophils % 0.6 % (0.0-2.0) 07/27/18 17:40 Sodium 139 mEq/L (136-145) 07/27/18 17:40 Potassium 4.0 mEq/L (3.5-5.1) 07/27/18 17:40 Chloride 103 mEq/L (98-107) 07/27/18 17:40 Carbon Dioxide 26.3 mEq/L (21.0-31.0) 07/27/18 17:40 Anion Gap 13.7 (7.0-16.0) 07/27/18 17:40 BUN 19 mg/dL (7-25) 07/27/18 17:40 Creatinine 0.9 mg/dL (0.7-1.3) 07/27/18 17:40 Est GFR ( Amer) > 60.0 ml/min (>90) 07/27/18 17:40 Est GFR (Non-Af Amer) > 60.0 ml/min 07/27/18 17:40 BUN/Creatinine Ratio 21.1 07/27/18 17:40 Glucose 162 mg/dL (70-105) H 07/27/18 17:40 Calcium 9.6 mg/dL (8.6-10.3) 07/27/18 17:40 Total Bilirubin 0.3 mg/dL (0.3-1.0) 07/27/18 17:40 AST 20 U/L (13-39) 07/27/18 17:40 ALT 15 U/L (7-52) 07/27/18 17:40 Alkaline Phosphatase 89 U/L (34-104) 07/27/18 17:40 Total Protein 6.5 gm/dL (6.0-8.3) 07/27/18 17:40 Albumin 3.9 gm/dL (4.2-5.5) L 07/27/18 17:40 Globulin 2.6 gm/dL 07/27/18 17:40 Albumin/Globulin Ratio 1.5 (1.0-1.8) 07/27/18 17:40 Triglycerides 100 mg/dL (<150) 07/27/18 17:40 Cholesterol 125 mg/dL (<200) 07/27/18 17:40 LDL Cholesterol Direct 61 mg/dL (75-193) L 07/27/18 17:40 HDL Cholesterol 51 mg/dL (23-92) 07/27/18 17:40 TSH 1.09 uIU/ml (0.34-5.60) 07/27/18 17:40 Urine Source CLEAN C 07/27/18 19:15 Urine Color YELLOW 07/27/18 19:15 Urine Clarity CLEAR (CLEAR) 07/27/18 19:15 Urine pH 5.5 (4.6 - 8.0) 07/27/18 19:15 Ur Specific [place] 1.025 (1.005-1.030) 07/27/18 19:15 Urine Protein NEGATIVE mg/dL (NEGATIVE) 07/27/18 19:15 Urine Glucose (UA) NEGATIVE mg/dL (NEGATIVE) 07/27/18 19:15 Urine Ketones NEGATIVE mg/dL (NEGATIVE) 07/27/18 19:15 Urine Blood TRACE (NEGATIVE) 07/27/18 19:15 Urine Nitrate NEGATIVE (NEGATIVE) 07/27/18 19:15 Urine Bilirubin NEGATIVE (NEGATIVE) 07/27/18 19:15 Urine Urobilinogen 0.2 E.U./dL (0.2 - 1.0) 07/27/18 19:15 Ur Leukocyte Esterase NEGATIVE (NEGATIVE) 07/27/18 19:15 Urine RBC 2-5 /hpf (0-5) H 07/27/18 19:15 Urine WBC 0-2 /hpf (0-5) 07/27/18 19:15 Ur Epithelial Cells NONE SEEN /lpf (FEW) 07/27/18 19:15 Urine Bacteria NONE SEEN /hpf (NONE SEEN) 07/27/18 19:15 - Physical Exam Vitals and I&O: Vital Signs Temp 97.5 F 08/07/18 06:14 Pulse 64 08/07/18 08:23 Resp 20 08/07/18 06:14 BP 126/69 08/07/18 08:23 Pulse Ox 96 08/07/18 06:14 Intake & Output 08/06/18 08/07/18 08/07/18 18:59 06:59 18:59 Intake Total 360 Balance 360 Intake: Oral 360 Other: # Voids 2 # Bowel Movements 1 0 Active Medications: Current Medications Acetaminophen (Tylenol) 650 mg PO Q4H PRN PRN Reason: Mild Pain/Headache/T above 101 Stop: 09/20/18 12:42 Last Admin: 07/30/18 22:50 Dose: 650 mg Al Hydrox/Mg Hydrox/Simethicone (Maalox) 30 ml PO Q6H PRN PRN Reason: Dyspepsia Stop: 09/20/18 12:42 Amlodipine Besylate (Norvasc) 10 mg PO DAILY [facility] Stop: 09/29/18 12:29 Last Admin: 08/07/18 08:23 Dose: 10 mg Divalproex Sodium (Depakote Dr) 500 mg PO BID [facility]; Protocol Stop: 09/29/18 16:59 Last Admin: 08/07/18 08:22 Dose: 500 mg Ibuprofen (Motrin) 600 mg PO TID [facility] Stop: 09/29/18 13:59 Last Admin: 08/07/18 08:32 Dose: 600 mg Lorazepam (Ativan) 0.5 mg PO Q4HR PRN; Protocol PRN Reason: Agitation Stop: 10/04/18 08:44 Last Admin: 08/06/18 20:27 Dose: 0.5 mg Magnesium Hydroxide (Milk Of Magnesia) 30 ml PO HS PRN PRN Reason: Constipation Stop: 09/20/18 12:42 Olanzapine (Zyprexa) 15 mg PO HS [facility]; Protocol Stop: 09/25/18 20:59 Last Admin: 08/06/18 20:26 Dose: 15 mg Olanzapine (Zyprexa) 15 mg PO DAILY [facility]; Protocol Stop: 09/29/18 08:59 Last Admin: 08/07/18 08:22 Dose: 15 mg Venlafaxine HCl (Effexor Xr) 37.5 mg PO BID [facility]; Protocol Stop: 09/23/18 16:59 Last Admin: 08/07/18 09:03 Dose: 37.5 mg General: NAD HEENT: NC/AT Neck: Supple, No JVD Lungs: CTAB Cardiovascular: RRR, Normal S1, Normal S2, without murmur Abdomen: soft, positive bowel sound Extremities: clear Neurological: no change Internal Medicine Assmt/Plan - Assessment Assessment: ACUTE PSYCH DECOMPENSATION NON-SPECIFIC PSYCH D/O ESSENTIAL HTN LEFT MIDDLE PHALANX NONDISPLACED FX - Plan Plan: CONT WITH CURRENT PSYCH SUPPORTIVE CARE AND MGT AMLODIPINE INCREASED TO 10MG QDAY CONT WITH CLONIDINE PRN IBUPROFEN TID WITH MEALS Nutritional Asmnt/Malnutr-PDOC - Dietary Evaluation Malnutrition Findings (Please click <Entered> for more info): Nutritional Asmnt/Malnutrition Start: 07/29/18 18: 18 Text: Status: Active Freq: Protocol: Document 07/29/18 18:18 [email or web address] (Rec: 07/29/18 18:50 [email or web address]) Nutritional Asmnt/Malnutrition Patient General Information Nutritional Screening Low Risk Diagnosis acute psych decompensation Pertinent Medical Hx/Surgical Hx no known medical hx noted per MD H&P. Subjective Information Pt is 58 yr old male with no known medical hx admitted for pscyh decompensation. Pt on regular diet, PO intakes 100% x last 6 recorded meals. Current Diet Order/ Nutrition Support Regular Diet Pertinent Medications milk of magnesia, maalox Pertinent Labs Glucose 162 noted/no hx DM; will monitor. Nutritional Hx/Data Height 1.73 m Height (Calculated Centimeters) 172.7 Current Weight (lbs) 68.039 kg Weight (Calculated Kilograms) 68.0 Weight (Calculated Grams) 65884.9 [place] Body Weight 70 kg Body Mass Index (BMI) 22.8 Weight Status Approriate GI Symptoms GI Symptoms None Last BM 07/26 Difficult in: None Food Allergies No Skin Integrity/Comment: intact- no pressure injury/non -healing wounds noted. Current %PO Good (75-100%) Estimated Nutritional Goals BEE in Kcals: Using Current wt Calories/Kcals/Kg 25-30 Kcals Calculated 8823-0930 Protein: Using Current wt Protein g/k.8-1 Protein Calculated 54-68 Fluid: ml 8989-1249 Nutritional Problem 1. Problem Problem No nutrition diagnosis at this time. Intervention/Recommendation Comments Continue Regular Diet Rx- adequate to meet estimated nutritional needs. Expected Outcomes/Goals Expected Outcomes/Goals Maintain PO intakes 90-100% of all meals. Electronically Signed By: Annalisa Galaviz, MPH, RDN Clinical Dietitian 07/29/18 7:10 PM
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
--- NOTE | 2018-08-08 08:32 | Internal Medicine Prog Note ---
Internal Medicine Subjective - Subjective Service Date: 10/08/18 (status quo) Patient seen and examined:: without staff Patient is:: awake, in bed Per staff patient has:: no adverse event Internal Medicine Objective - Results Result Diagrams: 07/27/18 17:40 07/27/18 17:40 Recent Labs: Laboratory Last Values WBC 6.6 Th/cmm (4.8-10.8) 07/27/18 17:40 RBC 4.44 Mil/cmm (4.30-5.70) 07/27/18 17:40 Hgb 13.2 gm/dL (12-16) 07/27/18 17:40 Hct 40.0 % (41.0-60) L 07/27/18 17:40 MCV 90.1 fl (80-99) 07/27/18 17:40 MCH 29.8 pg (26.0-30.0) 07/27/18 17:40 MCHC Differential 33.0 pg (28.0-36.0) 07/27/18 17:40 RDW 13.1 % (11.5-20.0) 07/27/18 17:40 Plt Count 220 Th/cmm (150-400) 07/27/18 17:40 MPV 7.9 fl 07/27/18 17:40 Neutrophils % 44.9 % (40.0-80.0) 07/27/18 17:40 Lymphocytes % 43.7 % (20.0-50.0) 07/27/18 17:40 Monocytes % 6.9 % (2.0-10.0) 07/27/18 17:40 Eosinophils % 3.9 % (0.0-5.0) 07/27/18 17:40 Basophils % 0.6 % (0.0-2.0) 07/27/18 17:40 Sodium 139 mEq/L (136-145) 07/27/18 17:40 Potassium 4.0 mEq/L (3.5-5.1) 07/27/18 17:40 Chloride 103 mEq/L (98-107) 07/27/18 17:40 Carbon Dioxide 26.3 mEq/L (21.0-31.0) 07/27/18 17:40 Anion Gap 13.7 (7.0-16.0) 07/27/18 17:40 BUN 19 mg/dL (7-25) 07/27/18 17:40 Creatinine 0.9 mg/dL (0.7-1.3) 07/27/18 17:40 Est GFR ( Amer) > 60.0 ml/min (>90) 07/27/18 17:40 Est GFR (Non-Af Amer) > 60.0 ml/min 07/27/18 17:40 BUN/Creatinine Ratio 21.1 07/27/18 17:40 Glucose 162 mg/dL (70-105) H 07/27/18 17:40 Calcium 9.6 mg/dL (8.6-10.3) 07/27/18 17:40 Total Bilirubin 0.3 mg/dL (0.3-1.0) 07/27/18 17:40 AST 20 U/L (13-39) 07/27/18 17:40 ALT 15 U/L (7-52) 07/27/18 17:40 Alkaline Phosphatase 89 U/L (34-104) 07/27/18 17:40 Total Protein 6.5 gm/dL (6.0-8.3) 07/27/18 17:40 Albumin 3.9 gm/dL (4.2-5.5) L 07/27/18 17:40 Globulin 2.6 gm/dL 07/27/18 17:40 Albumin/Globulin Ratio 1.5 (1.0-1.8) 07/27/18 17:40 Triglycerides 100 mg/dL (<150) 07/27/18 17:40 Cholesterol 125 mg/dL (<200) 07/27/18 17:40 LDL Cholesterol Direct 61 mg/dL (75-193) L 07/27/18 17:40 HDL Cholesterol 51 mg/dL (23-92) 07/27/18 17:40 TSH 1.09 uIU/ml (0.34-5.60) 07/27/18 17:40 Urine Source CLEAN C 07/27/18 19:15 Urine Color YELLOW 07/27/18 19:15 Urine Clarity CLEAR (CLEAR) 07/27/18 19:15 Urine pH 5.5 (4.6 - 8.0) 07/27/18 19:15 Ur Specific [place] 1.025 (1.005-1.030) 07/27/18 19:15 Urine Protein NEGATIVE mg/dL (NEGATIVE) 07/27/18 19:15 Urine Glucose (UA) NEGATIVE mg/dL (NEGATIVE) 07/27/18 19:15 Urine Ketones NEGATIVE mg/dL (NEGATIVE) 07/27/18 19:15 Urine Blood TRACE (NEGATIVE) 07/27/18 19:15 Urine Nitrate NEGATIVE (NEGATIVE) 07/27/18 19:15 Urine Bilirubin NEGATIVE (NEGATIVE) 07/27/18 19:15 Urine Urobilinogen 0.2 E.U./dL (0.2 - 1.0) 07/27/18 19:15 Ur Leukocyte Esterase NEGATIVE (NEGATIVE) 07/27/18 19:15 Urine RBC 2-5 /hpf (0-5) H 07/27/18 19:15 Urine WBC 0-2 /hpf (0-5) 07/27/18 19:15 Ur Epithelial Cells NONE SEEN /lpf (FEW) 07/27/18 19:15 Urine Bacteria NONE SEEN /hpf (NONE SEEN) 07/27/18 19:15 - Physical Exam Vitals and I&O: Vital Signs Temp 98.8 F 08/08/18 06:17 Pulse 64 08/08/18 06:17 Resp 20 08/08/18 06:17 BP 136/83 08/08/18 06:17 Pulse Ox 100 08/08/18 06:17 Intake & Output 08/07/18 08/08/18 08/08/18 18:59 06:59 18:59 Intake Total 1200 240 Balance 1200 240 Intake: Oral 1200 240 Other: # Voids 4 2 # Bowel Movements 1 0 Stool Characteristics Formed Active Medications: Current Medications Acetaminophen (Tylenol) 650 mg PO Q4H PRN PRN Reason: Mild Pain/Headache/T above 101 Stop: 09/20/18 12:42 Last Admin: 07/30/18 22:50 Dose: 650 mg Al Hydrox/Mg Hydrox/Simethicone (Maalox) 30 ml PO Q6H PRN PRN Reason: Dyspepsia Stop: 09/20/18 12:42 Amlodipine Besylate (Norvasc) 10 mg PO DAILY [facility] Stop: 09/29/18 12:29 Last Admin: 08/07/18 08:23 Dose: 10 mg Divalproex Sodium (Depakote Dr) 500 mg PO BID [facility]; Protocol Stop: 09/29/18 16:59 Last Admin: 08/07/18 17:04 Dose: 500 mg Ibuprofen (Motrin) 600 mg PO TID [facility] Stop: 09/29/18 13:59 Last Admin: 08/07/18 21:06 Dose: 600 mg Lorazepam (Ativan) 0.5 mg PO Q4HR PRN; Protocol PRN Reason: Agitation Stop: 10/04/18 08:44 Last Admin: 08/07/18 23:00 Dose: 0.5 mg Magnesium Hydroxide (Milk Of Magnesia) 30 ml PO HS PRN PRN Reason: Constipation Stop: 09/20/18 12:42 Olanzapine (Zyprexa) 15 mg PO HS [facility]; Protocol Stop: 09/25/18 20:59 Last Admin: 08/07/18 21:07 Dose: 15 mg Olanzapine (Zyprexa) 15 mg PO DAILY [facility]; Protocol Stop: 09/29/18 08:59 Last Admin: 08/07/18 08:22 Dose: 15 mg Venlafaxine HCl (Effexor Xr) 37.5 mg PO BID [facility]; Protocol Stop: 09/23/18 16:59 Last Admin: 08/07/18 17:04 Dose: 37.5 mg General: NAD HEENT: NC/AT Neck: Supple, No JVD Lungs: CTAB Cardiovascular: RRR, Normal S1, Normal S2, without murmur Abdomen: soft, positive bowel sound Extremities: clear Neurological: no change Internal Medicine Assmt/Plan - Assessment Assessment: ACUTE PSYCH DECOMPENSATION NON-SPECIFIC PSYCH D/O ESSENTIAL HTN LEFT MIDDLE PHALANX NONDISPLACED FX - Plan Plan: CONT WITH CURRENT PSYCH SUPPORTIVE CARE AND MGT AMLODIPINE INCREASED TO 10MG QDAY CONT WITH CLONIDINE PRN IBUPROFEN TID WITH MEALS Nutritional Asmnt/Malnutr-PDOC - Dietary Evaluation Malnutrition Findings (Please click <Entered> for more info): Nutritional Asmnt/Malnutrition Start: 07/29/18 18: 18 Text: Status: Active Freq: Protocol: Document 07/29/18 18:18 [email or web address] (Rec: 07/29/18 18:50 [email or web address]) Nutritional Asmnt/Malnutrition Patient General Information Nutritional Screening Low Risk Diagnosis acute psych decompensation Pertinent Medical Hx/Surgical Hx no known medical hx noted per MD H&P. Subjective Information Pt is 58 yr old male with no known medical hx admitted for pscyh decompensation. Pt on regular diet, PO intakes 100% x last 6 recorded meals. Current Diet Order/ Nutrition Support Regular Diet Pertinent Medications milk of magnesia, maalox Pertinent Labs Glucose 162 noted/no hx DM; will monitor. Nutritional Hx/Data Height 1.73 m Height (Calculated Centimeters) 172.7 Current Weight (lbs) 68.039 kg Weight (Calculated Kilograms) 68.0 Weight (Calculated Grams) 74429.9 [place] Body Weight 70 kg Body Mass Index (BMI) 22.8 Weight Status Approriate GI Symptoms GI Symptoms None Last BM 07/26 Difficult in: None Food Allergies No Skin Integrity/Comment: intact- no pressure injury/non -healing wounds noted. Current %PO Good (75-100%) Estimated Nutritional Goals BEE in Kcals: Using Current wt Calories/Kcals/Kg 25-30 Kcals Calculated 6306-6321 Protein: Using Current wt Protein g/k.8-1 Protein Calculated 54-68 Fluid: ml 7779-7626 Nutritional Problem 1. Problem Problem No nutrition diagnosis at this time. Intervention/Recommendation Comments Continue Regular Diet Rx- adequate to meet estimated nutritional needs. Expected Outcomes/Goals Expected Outcomes/Goals Maintain PO intakes 90-100% of all meals. Electronically Signed By: Annalisa Galaviz, MPH, RDN Clinical Dietitian 07/29/18 7:10 PM
[2018-08-08] MEDS: Venlafaxine HCl ER 37.5 mg Tab PO SCH ×2 (08:59→16:32)
--- NOTE | 2018-08-08 22:28 | Progress Notes ---
DATE: 08/08/2018 SUBJECTIVE: The patient seen, chart reviewed, discussed with staff. We are pending placements, ongoing concerns about his ability to take care of himself, although he is doing pretty well, oriented, engaged, calm and cooperative. No agitation. We are trying to confirm placement of a local correction facility. No SI. No HI. Fair sleep. Fair appetite. PLAN: We will continue to monitor, work on confirmation of placement and safe discharge plan. JOB# [id number]
[2018-08-09] MEDS: Venlafaxine HCl ER 37.5 mg Tab PO SCH ×2 (08:37→16:20)
--- NOTE | 2018-08-09 14:21 | Internal Medicine Prog Note ---
Internal Medicine Subjective - Subjective Service Date: 08/09/18 (08/09/2018) Patient seen and examined:: without staff Patient is:: awake, in bed Per staff patient has:: no adverse event Internal Medicine Objective - Results Result Diagrams: 07/27/18 17:40 07/27/18 17:40 Recent Labs: Laboratory Last Values WBC 6.6 Th/cmm (4.8-10.8) 07/27/18 17:40 RBC 4.44 Mil/cmm (4.30-5.70) 07/27/18 17:40 Hgb 13.2 gm/dL (12-16) 07/27/18 17:40 Hct 40.0 % (41.0-60) L 07/27/18 17:40 MCV 90.1 fl (80-99) 07/27/18 17:40 MCH 29.8 pg (26.0-30.0) 07/27/18 17:40 MCHC Differential 33.0 pg (28.0-36.0) 07/27/18 17:40 RDW 13.1 % (11.5-20.0) 07/27/18 17:40 Plt Count 220 Th/cmm (150-400) 07/27/18 17:40 MPV 7.9 fl 07/27/18 17:40 Neutrophils % 44.9 % (40.0-80.0) 07/27/18 17:40 Lymphocytes % 43.7 % (20.0-50.0) 07/27/18 17:40 Monocytes % 6.9 % (2.0-10.0) 07/27/18 17:40 Eosinophils % 3.9 % (0.0-5.0) 07/27/18 17:40 Basophils % 0.6 % (0.0-2.0) 07/27/18 17:40 Sodium 139 mEq/L (136-145) 07/27/18 17:40 Potassium 4.0 mEq/L (3.5-5.1) 07/27/18 17:40 Chloride 103 mEq/L (98-107) 07/27/18 17:40 Carbon Dioxide 26.3 mEq/L (21.0-31.0) 07/27/18 17:40 Anion Gap 13.7 (7.0-16.0) 07/27/18 17:40 BUN 19 mg/dL (7-25) 07/27/18 17:40 Creatinine 0.9 mg/dL (0.7-1.3) 07/27/18 17:40 Est GFR ( Amer) > 60.0 ml/min (>90) 07/27/18 17:40 Est GFR (Non-Af Amer) > 60.0 ml/min 07/27/18 17:40 BUN/Creatinine Ratio 21.1 07/27/18 17:40 Glucose 162 mg/dL (70-105) H 07/27/18 17:40 Calcium 9.6 mg/dL (8.6-10.3) 07/27/18 17:40 Total Bilirubin 0.3 mg/dL (0.3-1.0) 07/27/18 17:40 AST 20 U/L (13-39) 07/27/18 17:40 ALT 15 U/L (7-52) 07/27/18 17:40 Alkaline Phosphatase 89 U/L (34-104) 07/27/18 17:40 Total Protein 6.5 gm/dL (6.0-8.3) 07/27/18 17:40 Albumin 3.9 gm/dL (4.2-5.5) L 07/27/18 17:40 Globulin 2.6 gm/dL 07/27/18 17:40 Albumin/Globulin Ratio 1.5 (1.0-1.8) 07/27/18 17:40 Triglycerides 100 mg/dL (<150) 07/27/18 17:40 Cholesterol 125 mg/dL (<200) 07/27/18 17:40 LDL Cholesterol Direct 61 mg/dL (75-193) L 07/27/18 17:40 HDL Cholesterol 51 mg/dL (23-92) 07/27/18 17:40 TSH 1.09 uIU/ml (0.34-5.60) 07/27/18 17:40 Urine Source CLEAN C 07/27/18 19:15 Urine Color YELLOW 07/27/18 19:15 Urine Clarity CLEAR (CLEAR) 07/27/18 19:15 Urine pH 5.5 (4.6 - 8.0) 07/27/18 19:15 Ur Specific [place] 1.025 (1.005-1.030) 07/27/18 19:15 Urine Protein NEGATIVE mg/dL (NEGATIVE) 07/27/18 19:15 Urine Glucose (UA) NEGATIVE mg/dL (NEGATIVE) 07/27/18 19:15 Urine Ketones NEGATIVE mg/dL (NEGATIVE) 07/27/18 19:15 Urine Blood TRACE (NEGATIVE) 07/27/18 19:15 Urine Nitrate NEGATIVE (NEGATIVE) 07/27/18 19:15 Urine Bilirubin NEGATIVE (NEGATIVE) 07/27/18 19:15 Urine Urobilinogen 0.2 E.U./dL (0.2 - 1.0) 07/27/18 19:15 Ur Leukocyte Esterase NEGATIVE (NEGATIVE) 07/27/18 19:15 Urine RBC 2-5 /hpf (0-5) H 07/27/18 19:15 Urine WBC 0-2 /hpf (0-5) 07/27/18 19:15 Ur Epithelial Cells NONE SEEN /lpf (FEW) 07/27/18 19:15 Urine Bacteria NONE SEEN /hpf (NONE SEEN) 07/27/18 19:15 - Physical Exam Vitals and I&O: Vital Signs Temp 96.1 F 08/08/18 20:00 Pulse 87 08/09/18 08:36 Resp 18 08/09/18 10:34 BP 129/88 08/09/18 08:36 Pulse Ox 99 08/08/18 14:32 Intake & Output 08/08/18 08/09/18 08/09/18 18:59 06:59 18:59 Intake Total 1000 1200 Balance 1000 1200 Intake: Oral 1000 1200 Other: # Voids 3 3 # Bowel Movements 1 0 Active Medications: Current Medications Acetaminophen (Tylenol) 650 mg PO Q4H PRN PRN Reason: Mild Pain/Headache/T above 101 Stop: 09/20/18 12:42 Last Admin: 07/30/18 22:50 Dose: 650 mg Al Hydrox/Mg Hydrox/Simethicone (Maalox) 30 ml PO Q6H PRN PRN Reason: Dyspepsia Stop: 09/20/18 12:42 Amlodipine Besylate (Norvasc) 10 mg PO DAILY [facility] Stop: 09/29/18 12:29 Last Admin: 08/09/18 08:36 Dose: 10 mg Divalproex Sodium (Depakote Dr) 500 mg PO BID [facility]; Protocol Stop: 09/29/18 16:59 Last Admin: 08/09/18 08:37 Dose: 500 mg Ibuprofen (Motrin) 600 mg PO TID [facility] Stop: 09/29/18 13:59 Last Admin: 08/09/18 08:37 Dose: 600 mg Lorazepam (Ativan) 0.5 mg PO Q4HR PRN; Protocol PRN Reason: Agitation Stop: 10/04/18 08:44 Last Admin: 08/08/18 21:00 Dose: 0.5 mg Magnesium Hydroxide (Milk Of Magnesia) 30 ml PO HS PRN PRN Reason: Constipation Stop: 09/20/18 12:42 Olanzapine (Zyprexa) 15 mg PO HS [facility]; Protocol Stop: 09/25/18 20:59 Last Admin: 08/08/18 21:00 Dose: 15 mg Olanzapine (Zyprexa) 15 mg PO DAILY [facility]; Protocol Stop: 09/29/18 08:59 Last Admin: 08/09/18 08:36 Dose: 15 mg Venlafaxine HCl (Effexor Xr) 37.5 mg PO BID [facility]; Protocol Stop: 09/23/18 16:59 Last Admin: 08/09/18 08:37 Dose: 37.5 mg General: NAD HEENT: NC/AT Neck: Supple, No JVD Lungs: CTAB Cardiovascular: RRR, Normal S1, Normal S2, without murmur Abdomen: soft, positive bowel sound Extremities: clear Neurological: no change Internal Medicine Assmt/Plan - Assessment Assessment: ACUTE PSYCH DECOMPENSATION NON-SPECIFIC PSYCH D/O ESSENTIAL HTN LEFT MIDDLE PHALANX NONDISPLACED FX - Plan Plan: CONT WITH CURRENT PSYCH SUPPORTIVE CARE AND MGT AMLODIPINE INCREASED TO 10MG QDAY CONT WITH CLONIDINE PRN IBUPROFEN TID WITH MEALS Nutritional Asmnt/Malnutr-PDOC - Dietary Evaluation Malnutrition Findings (Please click <Entered> for more info): Nutritional Asmnt/Malnutrition Start: 07/29/18 18: 18 Text: Status: Active Freq: Protocol: Document 07/29/18 18:18 [email or web address] (Rec: 07/29/18 18:50 [email or web address]) Nutritional Asmnt/Malnutrition Patient General Information Nutritional Screening Low Risk Diagnosis acute psych decompensation Pertinent Medical Hx/Surgical Hx no known medical hx noted per MD H&P. Subjective Information Pt is 58 yr old male with no known medical hx admitted for pscyh decompensation. Pt on regular diet, PO intakes 100% x last 6 recorded meals. Current Diet Order/ Nutrition Support Regular Diet Pertinent Medications milk of magnesia, maalox Pertinent Labs Glucose 162 noted/no hx DM; will monitor. Nutritional Hx/Data Height 1.73 m Height (Calculated Centimeters) 172.7 Current Weight (lbs) 68.039 kg Weight (Calculated Kilograms) 68.0 Weight (Calculated Grams) 42185.9 [place] Body Weight 70 kg Body Mass Index (BMI) 22.8 Weight Status Approriate GI Symptoms GI Symptoms None Last BM 07/26 Difficult in: None Food Allergies No Skin Integrity/Comment: intact- no pressure injury/non -healing wounds noted. Current %PO Good (75-100%) Estimated Nutritional Goals BEE in Kcals: Using Current wt Calories/Kcals/Kg 25-30 Kcals Calculated 4568-8957 Protein: Using Current wt Protein g/k.8-1 Protein Calculated 54-68 Fluid: ml [id number] Nutritional Problem 1. Problem Problem No nutrition diagnosis at this time. Intervention/Recommendation Comments Continue Regular Diet Rx- adequate to meet estimated nutritional needs. Expected Outcomes/Goals Expected Outcomes/Goals Maintain PO intakes 90-100% of all meals. Electronically Signed By: Annalisa Galaviz, MPH, RDN Clinical Dietitian 07/29/18 7:10 PM
== END 2018-08-09 17:00 | DRG 885 ==
LOC: GERO 11:51
PROVIDERS: ADMIT Psychiatry & Neurology Psychiatry; ATTEND Psychiatry & Neurology Psychiatry
DX: F20.9 Schizophrenia, unspecified (principal); S62.655A Nondisplaced fracture of middle phalanx of left ring finger, initial encounter for closed fracture; F39 Unspecified mood [affective] disorder; F11.19 Opioid abuse with unspecified opioid-induced disorder; F15.19 Other stimulant abuse with unspecified stimulant-induced disorder; I10 Essential (primary) hypertension; X58.XXXA Exposure to other specified factors, initial encounter; Y93.89 Activity, other specified; Y92.89 Other specified places as the place of occurrence of the external cause; Y99.8 Other external cause status
CPT/HCPCS: 36415-UA; 73140-TC-F3; 80053-TC; 80061-TC; 81001-TC; 84443-TC; 85025-TC; 90899; 93005; 94760; G0410; J1200; J1630; J2060; J7051; Z7610